=== PATIENT | female | born 1960 | race African-American/Black ===

== ENCOUNTER 2018-02-12 03:16 | Emergency (ER) | payer MEDICARE, MEDICAID ==
[~2018-02-12] VITALS: Ht 152.4 cm; Wt 62.0 kg
[~2018-02-12 03:16] MED LIST: ALBU18HF2; ALBU25PO2 MC; FLONAS NS; FLUT1DIS3 IH
[2018-02-12 07:10] VITALS: BP 145/70
[2018-02-12] MEDS ORDERED: BACITRACIN ZINC OINT UDPKT TOP ONE (07:15)
== END 2018-02-12 07:10 | disposition home or self-care (01) ==
LOC: ER 03:16
DX: S61.411D Laceration without foreign body of right hand, subsequent encounter (principal); L03.113 Cellulitis of right upper limb; M54.30 Sciatica, unspecified side; J45.909 Unspecified asthma, uncomplicated; F12.10 Cannabis abuse, uncomplicated; Z88.0 Allergy status to penicillin; Z88.2 Allergy status to sulfonamides; Z87.828 Personal history of other (healed) physical injury and trauma; X58.XXXD Exposure to other specified factors, subsequent encounter
CPT/HCPCS: 99283

== ENCOUNTER 2018-02-23 16:08 | Emergency (ER) | payer MEDICARE, MEDICAID ==
[~2018-02-23] VITALS: Ht 152.4 cm; Wt 62.0 kg
[2018-02-23 23:00] VITALS: BP 146/82
== END 2018-02-24 00:34 | disposition home or self-care (01) ==
LOC: ER 16:08
DX: B36.9 Superficial mycosis, unspecified (principal); J45.909 Unspecified asthma, uncomplicated; M54.30 Sciatica, unspecified side; Z88.0 Allergy status to penicillin; Z88.2 Allergy status to sulfonamides
CPT/HCPCS: 87070; 87077; 87205; 99284

== ENCOUNTER 2019-06-02 10:36 | Emergency (ER) | payer MEDICARE, MEDICAID ==
[~2019-06-02] VITALS: Ht 152.4 cm; Wt 61.0 kg
[2019-06-02] MEDS ORDERED: IBUPROFEN 600MG TABLET PO ONE (11:45)
[2019-06-02 12:10] VITALS: BP 130/81
== END 2019-06-02 12:20 | disposition home or self-care (01) ==
LOC: ER 10:36
DX: S40.261A Insect bite (nonvenomous) of right shoulder, initial encounter (principal); J45.909 Unspecified asthma, uncomplicated; Z88.0 Allergy status to penicillin; Z88.2 Allergy status to sulfonamides; Z86.73 Personal history of transient ischemic attack (TIA), and cerebral infarction without residual deficits; W57.XXXA Bitten or stung by nonvenomous insect and other nonvenomous arthropods, initial encounter; Y93.89 Activity, other specified; Y92.89 Other specified places as the place of occurrence of the external cause; Y99.8 Other external cause status
CPT/HCPCS: 99282

== ENCOUNTER 2019-06-20 10:43 | Emergency (ER) | payer MEDICARE, MEDICAID ==
[~2019-06-20] VITALS: Ht 162.6 cm; Wt 63.0 kg
[2019-06-20] MEDS ORDERED: COLCHICINE 0.6MG TABLET PO ONE (15:30)
[2019-06-20] MEDS ORDERED: IBUPROFEN 800MG TABLET PO ONE (15:30)
[2019-06-20] MEDS ORDERED: DEXAMETHASONE 4MG/ML 1ML VIAL PO ONE (15:30)
[2019-06-20 16:11] VITALS: BP 126/61
== END 2019-06-20 16:16 | disposition home or self-care (01) ==
LOC: ER 10:43
DX: M79.601 Pain in right arm (principal); R53.1 Weakness; M24.541 Contracture, right hand; J45.909 Unspecified asthma, uncomplicated; Z88.0 Allergy status to penicillin; Z79.899 Other long term (current) drug therapy; Z88.2 Allergy status to sulfonamides; Z86.73 Personal history of transient ischemic attack (TIA), and cerebral infarction without residual deficits
CPT/HCPCS: 99284; J1100

== ENCOUNTER 2020-05-11 11:40 | Emergency (ER) | payer MEDICARE, MEDICAID ==
[~2020-05-11] VITALS: Ht 162.6 cm; Wt 61.0 kg
[2020-05-11] MEDS ORDERED: ONDANSETRON 4MG ODT PO ONE (13:00)
[2020-05-11] MEDS ORDERED: KETOROLAC 60MG/2ML VIAL IM ONE (13:00)
[2020-05-11] MEDS ORDERED: KETOROLAC 30MG/ML VIAL IM ONE (13:00)
[2020-05-11] MEDS ORDERED: HYDROCODONE/ACETAMINOPHEN 5/325MG TABLET PO ONE ×2 (13:00)
[2020-05-11 14:18] VITALS: BP 150/66
== END 2020-05-11 14:46 | disposition home or self-care (01) ==
LOC: ER 11:40
DX: M54.31 Sciatica, right side (principal); M79.604 Pain in right leg; M54.5 Low back pain; J45.909 Unspecified asthma, uncomplicated; Z88.0 Allergy status to penicillin; Z88.2 Allergy status to sulfonamides; Z86.73 Personal history of transient ischemic attack (TIA), and cerebral infarction without residual deficits
CPT/HCPCS: 93005; 96372; 99283; J1885; Q0162

== ENCOUNTER 2021-12-31 17:56 | Emergency (ER) | payer MEDICARE, MEDICAID ==
[~2021-12-31] VITALS: Ht 152.4 cm; Wt 61.0 kg
[~2021-12-31 17:56] MED LIST changes: -ALBU25PO2 MC; +ALLO100T MT; +GABA-290 MT; +HYDR-4009 MT; +METH-653 GT; +PANT20TA17 MT
[2021-12-31] MEDS ORDERED: DICYCLOMINE 10 MG/5 ML ORAL SYR PO STA ×2 (19:15→20:59)
[2021-12-31] MEDS ORDERED: LORAZEPAM 0.5MG TABLET PO ONE ×2 (19:15→21:00)
[2021-12-31] MEDS ORDERED: MORPHINE SULFATE 4 MG/ML CPJ (NOT FOR IM USE) IV STA ×2 (19:15→20:59)
[2021-12-31 20:30] LABS: BASOPHILS % 1.3 % (0.0-2.0); EOSINOPHILS % 2.1 % (0.0-5.0); HEMATOCRIT. 31.1 % (36.0-48.0); HEMOGLOBIN. 10.5 g/dL (12.0-16.0); LYMPHOCYTES % 49.6 % (20.0-50.0); MEAN CORPUSCULAR HEMOGLOBIN 31.4 pg (28.0-32.0); MEAN CORPUSCULAR VOLUME 93.3 fL (81.0-99.0); MONOCYTES % 6.2 % (2.0-8.0); NEUTROPHILS % 40.8 % (40.0-76.0); PLATELET 288 x1000/uL (130-400); RED BLOOD CELL COUNT 3.33 mill/uL (4.2-5.4); RED CELL DISTRIBUTION WIDTH 13.4 % (11.6-14.6)
[2021-12-31 20:38] LABS: CHLORIDE 103 mEq/L (98-107)
[2021-12-31] MEDS ORDERED: DIPHENHYDRAMINE 25MG CAPSULE PO ONE (21:30)
[2021-12-31] MEDS ORDERED: DIPHENHYDRAMINE 50MG/ML VIAL IV ONE (21:45)
[2021-12-31 22:30] VITALS: BP 144/60
== END 2021-12-31 22:30 | disposition home or self-care (01) ==
LOC: ER 17:56
DX: M54.50 Low back pain, unspecified (principal); E87.6 Hypokalemia; I10 Essential (primary) hypertension; I69.351 Hemiplegia and hemiparesis following cerebral infarction affecting right dominant side; Z88.2 Allergy status to sulfonamides; Z88.0 Allergy status to penicillin
CPT/HCPCS: 36415; 80053; 83690; 85025; 96374; 96375; 99284; J1200; J2270; Q0163

== ENCOUNTER 2022-01-30 09:16 | Emergency (ER) | payer MEDICARE, MEDICAID ==
[~2022-01-30] VITALS: Ht 160 cm; Wt 59.0 kg
[2022-01-30 09:18] VITALS: BP 150/80
[2022-01-30] MEDS ORDERED: ONDANSETRON HCL 4MG/2ML INJ IV STA (09:38)
[2022-01-30] MEDS ORDERED: MAGNESIUM/ALUMINUM HYDROXIDE/SIMETHICONE 30ML UDC PO STA (09:38)
[2022-01-30] MEDS ORDERED: SODIUM CHLORIDE 0.9% 1,000 ML IV ONE (09:45)
[2022-01-30 10:21] LABS: EOSINOPHILS % 1.9 % (0.0-5.0); HEMATOCRIT. 37.8 % (36.0-48.0); HEMOGLOBIN. 12.4 g/dL (12.0-16.0); LYMPHOCYTES % 21.1 % (20.0-50.0); MEAN CORPUSCULAR HEMOGLOBIN 30.5 pg (28.0-32.0); MEAN CORPUSCULAR VOLUME 92.4 fL (81.0-99.0); MONOCYTES % 5.5 % (2.0-8.0); NEUTROPHILS % 70.5 % (40.0-76.0); PLATELET 244 x1000/uL (130-400); RED BLOOD CELL COUNT 4.09 mill/uL (4.2-5.4); RED CELL DISTRIBUTION WIDTH 13.6 % (11.6-14.6)
[2022-01-30 10:30] LABS: CHLORIDE 102 mEq/L (98-107)
[2022-01-30] MEDS ORDERED: POTASSIUM CHLORIDE 20MEQ TABLET SR PO NR (11:00)
[2022-01-30] MEDS ORDERED: HYDROCODONE/ACETAMINOPHEN 5/325MG TABLET PO ONE (12:00)
[2022-01-30 12:48] LABS: CLARITY URINE CLEAR (CLEAR); COLOR URINE YELLOW (YELLOW); KETONES URINE NEGATIVE (NEGATIVE); LEUKOCYTE ESTERASE URINE NEGATIVE (NEGATIVE); NITRITE URINE NEGATIVE (NEGATIVE); OCCULT BLOOD URINE NEGATIVE (NEGATIVE); PH URINE 6.5 (4.5-8.0); PROTEIN URINE NEGATIVE (NEGATIVE); UROBILINOGEN URINE 0.2 E.U./dL (0.2-1.0)
[2022-01-30] MEDS ORDERED: VISCOUS LIDOCAINE 2% 15 ML UDC PO NR (12:59)
[2022-01-30] MEDS ORDERED: ACETAMINOPHEN 325MG TABLET PO NR (13:00)
[2022-01-30] MEDS ORDERED: MAGN296S70 MT (13:05)
== END 2022-01-30 19:58 | disposition home or self-care (01) ==
LOC: ER 09:31
DX: K59.00 Constipation, unspecified (principal); J45.909 Unspecified asthma, uncomplicated; Z88.0 Allergy status to penicillin; Z88.2 Allergy status to sulfonamides; Z98.890 Other specified postprocedural states; Z86.73 Personal history of transient ischemic attack (TIA), and cerebral infarction without residual deficits
CPT/HCPCS: 36415; 74176; 80053; 81003; 83690; 85025; 93005; 96361; 96374; 99285; J2405; J7030

== ENCOUNTER 2022-02-06 10:58 | Emergency (ER) | payer MEDICARE, MEDICAID ==
[~2022-02-06] VITALS: Ht 167.6 cm; Wt 60.0 kg
[~2022-02-06 10:58] MED LIST changes: +MAGN296S70 MT
[2022-02-06] MEDS ORDERED: ONDANSETRON HCL 4MG/2ML INJ IV STA (11:16)
[2022-02-06] MEDS ORDERED: MORPHINE SULFATE 4 MG/ML CPJ (NOT FOR IM USE) IV STA (11:16)
[2022-02-06] MEDS ORDERED: SODIUM CHLORIDE 0.9% 1,000 ML IV ONE (11:30)
[2022-02-06 11:53] VITALS: BP 144/75
[2022-02-06 12:01] LABS: BASOPHILS % 1.3 % (0.0-2.0); EOSINOPHILS % 1.1 % (0.0-5.0); HEMATOCRIT. 36.2 % (36.0-48.0); HEMOGLOBIN. 12.1 g/dL (12.0-16.0); MEAN CORPUSCULAR HEMOGLOBIN 30.9 pg (28.0-32.0); MEAN CORPUSCULAR VOLUME 92.7 fL (81.0-99.0); MEAN PLATELET VOLUME 9.4 fl (7.4-10.4); MONOCYTES % 5.6 % (2.0-8.0); PLATELET 275 x1000/uL (130-400); RED CELL DISTRIBUTION WIDTH 13.6 % (11.6-14.6)
[2022-02-06 12:09] LABS: CHLORIDE 104 mEq/L (98-107)
[2022-02-06 12:13] LABS: CLARITY URINE CLEAR (CLEAR); COLOR URINE YELLOW (YELLOW); KETONES URINE NEGATIVE (NEGATIVE); LEUKOCYTE ESTERASE URINE 2+ (NEGATIVE); NITRITE URINE NEGATIVE (NEGATIVE); OCCULT BLOOD URINE NEGATIVE (NEGATIVE); PROTEIN URINE NEGATIVE (NEGATIVE); SPECIFIC GRAVITY URINE 1.015 (1.005-1.030); UROBILINOGEN URINE 0.2 E.U./dL (0.2-1.0)
[2022-02-06] MEDS ORDERED: CIPR-263 MT (13:06)
[2022-02-06] MEDS ORDERED: ACETAMINOPHEN 325MG TABLET PO ONE (14:45)
[2022-02-06] MEDS ORDERED: ACET-2708 MT (15:21)
[2022-02-06] MEDS ORDERED: MAGNESIUM/ALUMINUM HYDROXIDE/SIMETHICONE 30ML UDC PO ONE (15:30)
[2022-02-06] MEDS ORDERED: MAG355OR21 MT (15:41)
[2022-02-14] MEDS ORDERED: HYDR-4001 MT (18:31)
== END 2022-02-06 15:36 | disposition home or self-care (01) ==
LOC: ER 10:58
DX: N39.0 Urinary tract infection, site not specified (principal); J45.909 Unspecified asthma, uncomplicated; Z88.0 Allergy status to penicillin; Z88.2 Allergy status to sulfonamides; Z79.899 Other long term (current) drug therapy; Z86.73 Personal history of transient ischemic attack (TIA), and cerebral infarction without residual deficits; Z98.890 Other specified postprocedural states
CPT/HCPCS: 36415; 71045; 80053; 81003; 83690; 85025; 96361; 96374; 96375; 99284; J2270; J2405; J7030

== ENCOUNTER 2022-02-14 16:26 | Emergency (ER) | payer MEDICARE, MEDICAID ==
[~2022-02-14] VITALS: Ht 165.1 cm; Wt 59.0 kg
[~2022-02-14 16:26] MED LIST changes: +ACET-2708 MT; +CIPR-263 MT; +MAG355OR21 MT
[2022-02-14 17:43] LABS: BASOPHILS % 0.9 % (0.0-2.0); EOSINOPHILS % 1.1 % (0.0-5.0); HEMATOCRIT. 32.3 % (36.0-48.0); HEMOGLOBIN. 10.8 g/dL (12.0-16.0); LYMPHOCYTES % 22.1 % (20.0-50.0); MEAN CORPUSCULAR HEMOGLOBIN 31.2 pg (28.0-32.0); MEAN CORPUSCULAR VOLUME 93.5 fL (81.0-99.0); MEAN PLATELET VOLUME 9.3 fl (7.4-10.4); MONOCYTES % 9.9 % (2.0-8.0); PLATELET 243 x1000/uL (130-400); RED BLOOD CELL COUNT 3.45 mill/uL (4.2-5.4); RED CELL DISTRIBUTION WIDTH 13.2 % (11.6-14.6)
[2022-02-14 17:51] LABS: CHLORIDE 98 mEq/L (98-107)
[2022-02-14] MEDS ORDERED: COLCHICINE 0.6MG TABLET PO ONE (18:15)
[2022-02-14] MEDS ORDERED: HYDR-4001 MT ×2 (18:31)
[2022-02-14] MEDS ORDERED: IBUP-2029 MT (18:31)
[2022-02-14] MEDS ORDERED: COLC0.6C3 MT (18:31)
[2022-02-14] MEDS ORDERED: HYDROCODONE/ACETAMINOPHEN 5/325MG TABLET PO ONE (19:00)
[2022-02-14 19:34] VITALS: BP 140/74
[2022-02-15] MEDS ORDERED: HYDR-4001 MT (19:03)
[2022-02-15] MEDS ORDERED: MAG355OR21 MT (19:03)
== END 2022-02-14 21:05 | disposition home or self-care (01) ==
LOC: ER 16:26
DX: M10.9 Gout, unspecified (principal); E87.6 Hypokalemia; D64.9 Anemia, unspecified; M19.90 Unspecified osteoarthritis, unspecified site; I69.351 Hemiplegia and hemiparesis following cerebral infarction affecting right dominant side; F17.210 Nicotine dependence, cigarettes, uncomplicated; F11.10 Opioid abuse, uncomplicated; I10 Essential (primary) hypertension; K21.9 Gastro-esophageal reflux disease without esophagitis; Z98.890 Other specified postprocedural states; Z88.2 Allergy status to sulfonamides; Z88.0 Allergy status to penicillin
CPT/HCPCS: 36415; 73080; 80053; 84550; 85025; 99284

== ENCOUNTER 2022-02-18 21:16 | Emergency (ER) | payer MEDICARE, MEDICAID ==
[~2022-02-18] VITALS: Ht 170.2 cm; Wt 74.0 kg
[~2022-02-18 21:16] MED LIST changes: +COLC0.6C3 MT; +HYDR-4001 MT; +IBUP-2029 MT
[2022-02-18] MEDS ORDERED: KETOROLAC 30MG/ML VIAL IV STA (21:28)
[2022-02-18 22:18] LABS: CLARITY URINE CLEAR (CLEAR); COLOR URINE YELLOW (YELLOW); KETONES URINE NEGATIVE (NEGATIVE); LEUKOCYTE ESTERASE URINE TRACE (NEGATIVE); NITRITE URINE NEGATIVE (NEGATIVE); OCCULT BLOOD URINE NEGATIVE (NEGATIVE); PROTEIN URINE NEGATIVE (NEGATIVE); SPECIFIC GRAVITY URINE 1.006 (1.005-1.030); UROBILINOGEN URINE 0.2 E.U./dL (0.2-1.0)
[2022-02-18 22:19] LABS: HEMATOCRIT. 31.9 % (36.0-48.0); HEMOGLOBIN. 10.5 g/dL (12.0-16.0); MEAN CORPUSCULAR HEMOGLOBIN 30.4 pg (28.0-32.0); MEAN CORPUSCULAR VOLUME 92.5 fL (81.0-99.0); MEAN PLATELET VOLUME 9.4 fl (7.4-10.4); PLATELET 348 x1000/uL (130-400); RED BLOOD CELL COUNT 3.45 mill/uL (4.2-5.4); RED CELL DISTRIBUTION WIDTH 13.3 % (11.6-14.6)
[2022-02-18 22:24] LABS: CHLORIDE 100 mEq/L (98-107)
[2022-02-18 22:37] LABS: CREATINE KINASE 198 IU/L (26-192)
[2022-02-18] MEDS ORDERED: CEFTRIAXONE 1 G PREMIX 50 ML IV ONE (22:45)
[2022-02-18 22:54] LABS: PLATELET ESTIMATE NORMAL
[2022-02-19] MEDS ORDERED: CIPR500T5 MT (00:37)
[2022-02-19 01:27] VITALS: BP 145/68
[2022-02-21] MEDS ORDERED: COLC0.6C PO (01:49)
[2022-02-21] MEDS ORDERED: OMEP40CA20 PO (01:49)
== END 2022-02-19 01:29 | disposition home or self-care (01) ==
LOC: ER 21:16
DX: N39.0 Urinary tract infection, site not specified (principal); G89.29 Other chronic pain; M54.9 Dorsalgia, unspecified; R10.9 Unspecified abdominal pain; K21.9 Gastro-esophageal reflux disease without esophagitis; J45.909 Unspecified asthma, uncomplicated; M10.9 Gout, unspecified; Z86.73 Personal history of transient ischemic attack (TIA), and cerebral infarction without residual deficits; Z88.2 Allergy status to sulfonamides; Z88.6 Allergy status to analgesic agent
CPT/HCPCS: 36415; 71045; 80053; 81003; 82550; 83605; 83615; 84145; 84484; 85025; 86140; 87040; 93005; 96365; 96375; 99285; J0696; J1885

== ENCOUNTER 2022-03-29 21:05 | Emergency (ER) | payer MEDICARE, MEDICAID ==
[~2022-03-29] VITALS: Ht 162.6 cm; Wt 61.0 kg
[~2022-03-29 21:05] MED LIST changes: +CIPR500T5 MT; -HYDR-4009 MT; -PANT20TA17 MT
[2022-03-29] MEDS ORDERED: METHOCARBAMOL 500MG TABLET PO ONE (22:15)
[2022-03-29] MEDS ORDERED: KETOROLAC 30MG/ML VIAL IM ONE (22:15)
[2022-03-29 22:47] LABS: CLARITY URINE CLEAR (CLEAR); COLOR URINE YELLOW (YELLOW); KETONES URINE NEGATIVE (NEGATIVE); LEUKOCYTE ESTERASE URINE NEGATIVE (NEGATIVE); NITRITE URINE NEGATIVE (NEGATIVE); OCCULT BLOOD URINE NEGATIVE (NEGATIVE); PROTEIN URINE NEGATIVE (NEGATIVE); SPECIFIC GRAVITY URINE 1.008 (1.005-1.030); UROBILINOGEN URINE 0.2 E.U./dL (0.2-1.0)
[2022-03-29 22:49] LABS: BASOPHILS % 1.3 % (0.0-2.0); EOSINOPHILS % 2.2 % (0.0-5.0); HEMATOCRIT. 32.2 % (36.0-48.0); HEMOGLOBIN. 10.8 g/dL (12.0-16.0); LYMPHOCYTES % 47.6 % (20.0-50.0); MEAN CORPUSCULAR HEMOGLOBIN 31.6 pg (28.0-32.0); MEAN CORPUSCULAR VOLUME 94.4 fL (81.0-99.0); MEAN PLATELET VOLUME 8.9 fl (7.4-10.4); MONOCYTES % 6.1 % (2.0-8.0); NEUTROPHILS % 42.8 % (40.0-76.0); PLATELET 257 x1000/uL (130-400); RED BLOOD CELL COUNT 3.41 mill/uL (4.2-5.4); RED CELL DISTRIBUTION WIDTH 13.9 % (11.6-14.6)
[2022-03-29 23:03] LABS: CHLORIDE 101 mEq/L (98-107)
[2022-03-30] MEDS ORDERED: HYDROCODONE/ACETAMINOPHEN 5/325MG TABLET PO ONE (00:15)
[2022-03-30 00:59] VITALS: BP 126/74
== END 2022-03-30 00:59 | disposition home or self-care (01) ==
LOC: ER 21:05
DX: M54.50 Low back pain, unspecified (principal); G89.29 Other chronic pain; M54.30 Sciatica, unspecified side; K21.9 Gastro-esophageal reflux disease without esophagitis; J45.909 Unspecified asthma, uncomplicated; Z86.73 Personal history of transient ischemic attack (TIA), and cerebral infarction without residual deficits; Z88.2 Allergy status to sulfonamides; Z88.0 Allergy status to penicillin
CPT/HCPCS: 36415; 80048; 81003; 85025; 96372; 99283; J1885

== ENCOUNTER 2022-05-27 14:31 | Emergency (ER) | payer MEDICARE, MEDICAID ==
[~2022-05-27] VITALS: Ht 170.2 cm; Wt 75.0 kg
[~2022-05-27 14:31] MED LIST changes: -CIPR-263 MT; -CIPR500T5 MT; -COLC0.6C3 MT; -FLONAS NS; -FLUT1DIS3 IH; -IBUP-2029 MT; -METH-653 GT; +METO-539 PO; +PANT40TA51 MT
[2022-05-27] MEDS ORDERED: DICYCLOMINE 10 MG/5 ML ORAL SYR PO STA (15:47)
[2022-05-27] MEDS ORDERED: KETOROLAC 60MG/2ML VIAL IM STA (15:47)
[2022-05-27 16:23] VITALS: BP 135/72
[2022-05-27 16:49] LABS: BASOPHILS % 1.2 % (0.0-2.0); EOSINOPHILS % 1.2 % (0.0-5.0); HEMATOCRIT. 37.5 % (36.0-48.0); HEMOGLOBIN. 11.9 g/dL (12.0-16.0); LYMPHOCYTES % 26.8 % (20.0-50.0); MEAN CORPUSCULAR HEMOGLOBIN 30.9 pg (28.0-32.0); MEAN CORPUSCULAR VOLUME 97.2 fL (81.0-99.0); MEAN PLATELET VOLUME 10.2 fl (7.4-10.4); MONOCYTES % 4.6 % (2.0-8.0); NEUTROPHILS % 66.2 % (40.0-76.0); PLATELET 237 x1000/uL (130-400); RED BLOOD CELL COUNT 3.86 mill/uL (4.2-5.4)
[2022-05-27 16:53] LABS: CHLORIDE 104 mEq/L (98-107)
[2022-05-27 16:55] LABS: PROTHROMBIN TIME 10.4 sec (9.6-11.0)
[2022-05-27] MEDS: MORPHINE SULFATE 10 MG/ML CPJ IV ONE ×2 (17:44→17:48)
[2022-05-27] MEDS ORDERED: DIPHENHYDRAMINE 50MG/ML VIAL IV ONE (18:15)
[2022-05-27] MEDS ORDERED: DICY10CA88 MT (19:02)
[2022-05-27] MEDS ORDERED: FAMO-135 MT (19:02)
== END 2022-05-27 19:14 | disposition home or self-care (01) ==
LOC: ER 14:31
DX: R10.84 Generalized abdominal pain (principal); G89.29 Other chronic pain; K21.9 Gastro-esophageal reflux disease without esophagitis; I10 Essential (primary) hypertension; I69.351 Hemiplegia and hemiparesis following cerebral infarction affecting right dominant side; J45.909 Unspecified asthma, uncomplicated; Z88.2 Allergy status to sulfonamides; Z88.5 Allergy status to narcotic agent; Z88.0 Allergy status to penicillin
CPT/HCPCS: 36415; 80053; 83690; 85025; 85610; 96372; 96374; 96375; 99284; J1200; J1885; J2270

== ENCOUNTER 2022-05-31 16:36 | Emergency (ER) | payer MEDICARE, MEDICAID ==
[~2022-05-31] VITALS: Ht 170.2 cm; Wt 61.0 kg
[~2022-05-31 16:36] MED LIST changes: +DICY10CA88 MT; +FAMO-135 MT
[2022-05-31 16:39] VITALS: BP 126/69
[2022-05-31] MEDS ORDERED: KETOROLAC 60MG/2ML VIAL IM NR (17:00)
[2022-05-31] MEDS ORDERED: KETOROLAC 60MG/2ML VIAL IM ONE (17:00)
[2022-05-31] MEDS ORDERED: IBUP-2029 MT (19:07)
[2022-05-31] MEDS ORDERED: CYCL10TA21 MT (19:07)
[2022-05-31] MEDS ORDERED: ACETAMINOPHEN 325MG TABLET PO ONE (19:15)
== END 2022-05-31 19:27 | disposition home or self-care (01) ==
LOC: ER 16:36
DX: S30.0XXA Contusion of lower back and pelvis, initial encounter (principal); W18.39XA Other fall on same level, initial encounter; Y93.89 Activity, other specified; Y92.89 Other specified places as the place of occurrence of the external cause; Y99.8 Other external cause status; K21.9 Gastro-esophageal reflux disease without esophagitis; J45.909 Unspecified asthma, uncomplicated; Z86.73 Personal history of transient ischemic attack (TIA), and cerebral infarction without residual deficits; Z87.440 Personal history of urinary (tract) infections
CPT/HCPCS: 72131; 96372; 99284; J1885

== ENCOUNTER 2022-09-29 07:16 | Emergency (ER) | payer OTHER, MEDICAID ==
[~2022-09-29] VITALS: Ht 165.1 cm; Wt 60.0 kg
[~2022-09-29 07:16] MED LIST changes: +CYCL10TA21 MT; +IBUP-2029 MT
[2022-09-29] MEDS ORDERED: HYDROCODONE/ACETAMINOPHEN 7.5/325MG TABLET PO PRN (08:15)
[2022-09-29 08:58] LABS: BASOPHILS % 2.2 % (0.0-2.0); EOSINOPHILS % 2.8 % (0.0-5.0); HEMATOCRIT. 34.4 % (36.0-48.0); HEMOGLOBIN. 11.3 g/dL (12.0-16.0); MEAN CORPUSCULAR HEMOGLOBIN 30.2 pg (28.0-32.0); MEAN CORPUSCULAR VOLUME 91.4 fL (81.0-99.0); MEAN PLATELET VOLUME 9.4 fl (7.4-10.4); MONOCYTES % 5.2 % (2.0-8.0); NEUTROPHILS % 32.8 % (40.0-76.0); PLATELET 222 x1000/uL (130-400); RED BLOOD CELL COUNT 3.76 mill/uL (4.2-5.4); RED CELL DISTRIBUTION WIDTH 14.6 % (11.6-14.6)
[2022-09-29] MEDS ORDERED: TRAMADOL 50MG TABLET PO ONE (09:45)
[2022-09-29 09:50] LABS: CHLORIDE 103 mEq/L (98-107)
[2022-09-29 10:08] VITALS: BP 139/82
== END 2022-09-29 12:45 | disposition home or self-care (01) ==
LOC: ER 07:16
DX: K58.9 Irritable bowel syndrome, unspecified (principal); J45.909 Unspecified asthma, uncomplicated; Z88.0 Allergy status to penicillin; Z88.2 Allergy status to sulfonamides; Z79.899 Other long term (current) drug therapy; Z98.890 Other specified postprocedural states; Z86.73 Personal history of transient ischemic attack (TIA), and cerebral infarction without residual deficits
CPT/HCPCS: 36415; 80048; 84484; 85025; 93005; 99284

== ENCOUNTER 2022-12-06 15:43 | Inpatient (IN) | payer MEDICARE, MEDICAID ==
[~2022-12-06] VITALS: Ht 167.6 cm; Wt 69.9 kg
[2022-12-06] MEDS ORDERED: ONDANSETRON HCL 4MG/2ML INJ IV STA (16:07)
[2022-12-06] MEDS ORDERED: KETOROLAC 30MG/ML VIAL IV STA (16:07)
[2022-12-06] MEDS ORDERED: FAMOTIDINE 20MG/2ML VIAL IV STA (16:07)
[2022-12-06] MEDS ORDERED: SODIUM CHLORIDE 0.9% 1,000 ML IV ONE (16:15)
[2022-12-06 16:43] LABS: BASOPHILS % 1.2 % (0.0-2.0); HEMATOCRIT. 33.3 % (36.0-48.0); LYMPHOCYTES % 49.4 % (20.0-50.0); NEUTROPHILS % 40.4 % (40.0-76.0); PLATELET 264 x1000/uL (130-400); RED BLOOD CELL COUNT 3.54 mill/uL (4.2-5.4); RED CELL DISTRIBUTION WIDTH 14.7 % (11.6-14.6)
[2022-12-06 16:47] LABS: CHLORIDE 103 mEq/L (98-107)
[2022-12-06] MEDS ORDERED: POTASSIUM CHLORIDE 20MEQ TABLET SR PO NR (17:15)
[2022-12-06] MEDS ORDERED: KCL 10MEQ/50ML PREMIX 50 ML IV NR (17:45)
[2022-12-06] MEDS ORDERED: FAMOTIDINE 20MG/2ML VIAL IV NR (21:30)
[2022-12-06] MEDS ORDERED: KETOROLAC 15MG/ML VIAL IV NR (21:30)
[2022-12-06] MEDS ORDERED: ONDANSETRON HCL 4MG/2ML INJ IV NR (21:30)
[2022-12-07] MEDS ORDERED: CLONIDINE 0.1MG TABLET PO PRN (00:30)
[2022-12-07] MEDS ORDERED: KETOROLAC 15MG/ML VIAL IV NR (00:30)
[2022-12-07] MEDS ORDERED: HYDROCODONE/ACETAMINOPHEN 5/325MG TABLET PO PRN (00:30)
[2022-12-07] MEDS ORDERED: ACETAMINOPHEN 325MG TABLET PO PRN ×2 (00:30)
[2022-12-07] MEDS ORDERED: ONDANSETRON HCL 4MG/2ML INJ IV PRN (00:30)
[2022-12-07] MEDS ORDERED: IPRATROPIUM/ALBUTEROL 0.5-3(2.5)MG/3ML NEB HHN PRN (00:30)
[2022-12-07 00:35] LABS: CLARITY URINE CLEAR (CLEAR); COLOR URINE YELLOW (YELLOW); KETONES URINE NEGATIVE (NEGATIVE); LEUKOCYTE ESTERASE URINE TRACE (NEGATIVE); NITRITE URINE NEGATIVE (NEGATIVE); OCCULT BLOOD URINE NEGATIVE (NEGATIVE); PH URINE 5.5 (4.5-8.0); PROTEIN URINE NEGATIVE (NEGATIVE); SPECIFIC GRAVITY URINE 1.013 (1.005-1.030); UROBILINOGEN URINE 0.2 E.U./dL (0.2-1.0)
[2022-12-07] MEDS ORDERED: NALOXONE HCL 0.4MG/ML VIAL IV PRN (00:45)
[2022-12-07] MEDS ORDERED: IOHEXOL-300 100 ML BOTTLE ONE (01:05)
[2022-12-07] MEDS: DEXT 5%/0.9% NACL 1,000 ML IV SCH ×3 (01:15→21:20)
[2022-12-07] MEDS: PANTOPRAZOLE SODIUM 40 MG/VIAL IV SCH ×2 (01:15→09:00)
[2022-12-07 01:36] LABS: BASOPHILS % 1.2 % (0.0-2.0); EOSINOPHILS % 2.2 % (0.0-5.0); HEMATOCRIT. 31.3 % (36.0-48.0); HEMOGLOBIN. 10.5 g/dL (12.0-16.0); LYMPHOCYTES % 40.9 % (20.0-50.0); MEAN CORPUSCULAR HEMOGLOBIN 31.6 pg (28.0-32.0); MEAN CORPUSCULAR VOLUME 93.8 fL (81.0-99.0); MEAN PLATELET VOLUME 8.9 fl (7.4-10.4); MONOCYTES % 7.4 % (2.0-8.0); NEUTROPHILS % 48.3 % (40.0-76.0); PLATELET 243 x1000/uL (130-400); RED BLOOD CELL COUNT 3.33 mill/uL (4.2-5.4); RED CELL DISTRIBUTION WIDTH 14.2 % (11.6-14.6)
[2022-12-07 01:41] LABS: CHLORIDE 108 mEq/L (98-107)
[2022-12-07 01:56] LABS: HDL CHOLESTEROL 102 mg/dL (40-59); LDL CHOLESTEROL 49 mg/dL (5-100); PHOSPHORUS 3.5 mg/dL (2.5-4.9); T4 FREE 1.15 ng/dL (0.76-1.46); TOTAL IRON BINDING CAPACITY 322 ug/dL (250-450)
[2022-12-07 02:13] LABS: FOLIC ACID (FOLATE) SERUM 8.1 ng/mL (>5.38)
[2022-12-07] MEDS: HYDROCODONE/ACETAMINOPHEN 10/325MG TABLET PO PRN ×2 (02:39→13:10)
[2022-12-07] MEDS: ENOXAPARIN 40MG/0.4ML SYR SUBCUT SCH (09:00)
[2022-12-07] MEDS: ALLOPURINOL 100 MG TABLET PO SCH ×2 (09:00→13:31)
[2022-12-07] MEDS: METOPROLOL TARTRATE 50MG TABLET PO SCH ×2 (09:00→14:34)
[2022-12-07 10:45] LABS: CHLORIDE 110 mEq/L (98-107)
[2022-12-07 13:40] VITALS: BP 160/73
[2022-12-07 14:00] VITALS: BP 160/73
[2022-12-07 16:00] VITALS: BP 154/86
[2022-12-07] MEDS ORDERED: LOPERAMIDE HCL 2MG CAPSULE PO SCH (17:15)
[2022-12-07] MEDS: MORPHINE SULFATE 2 MG/ML CPJ (NOT FOR IM USE) IV PRN ×2 (17:48→22:21)
[2022-12-07 19:56] VITALS: BP 107/53
[2022-12-08 00:07] VITALS: BP 124/58
[2022-12-08] MEDS: MORPHINE SULFATE 2 MG/ML CPJ (NOT FOR IM USE) IV PRN ×2 (02:51→07:09)
[2022-12-08 04:00] VITALS: BP 106/41
[2022-12-08] MEDS: DEXT 5%/0.9% NACL 1,000 ML IV SCH (06:13)
[2022-12-08 08:00] VITALS: BP 142/68
[2022-12-08] MEDS: PANTOPRAZOLE SODIUM 40 MG/VIAL IV SCH (08:41)
[2022-12-08] MEDS: ENOXAPARIN 40MG/0.4ML SYR SUBCUT SCH (08:41)
[2022-12-08] MEDS: METOPROLOL TARTRATE 50MG TABLET PO SCH (08:42)
[2022-12-08 08:49] LABS: CHLORIDE 108 mEq/L (98-107)
[2022-12-08 10:03] VITALS: BP 142/68
== END 2022-12-08 11:22 | disposition home or self-care (01) | DRG 392 ==
LOC: ER 15:43 → MICUSO 21:41 → 4WST 12-07 13:36
PROVIDERS: ADMIT Internal Medicine; ATTEND Internal Medicine
DX: K58.0 Irritable bowel syndrome with diarrhea (principal); E87.6 Hypokalemia; I10 Essential (primary) hypertension; D63.8 Anemia in other chronic diseases classified elsewhere; J45.909 Unspecified asthma, uncomplicated; G89.29 Other chronic pain; K21.9 Gastro-esophageal reflux disease without esophagitis; Z76.5 Malingerer [conscious simulation]; Z86.73 Personal history of transient ischemic attack (TIA), and cerebral infarction without residual deficits; Z79.899 Other long term (current) drug therapy; Z88.5 Allergy status to narcotic agent; Z88.0 Allergy status to penicillin; Z88.2 Allergy status to sulfonamides; K27.9 Peptic ulcer, site unspecified, unspecified as acute or chronic, without hemorrhage or perforation
CPT/HCPCS: 36415; 74177; 80048; 80053; 80061; 81003; 82270; 82607; 82728; 82746; 83036; 83540; 83550; 83605; 83735; 84100; 84145; 84439; 84443; 85025; 87015; 87045; 87427; 87449; 87493; 89055; 93970; 99285; C9113; J1650; J1885; J2270; J2405; J3480; J3490; J7030; J7042; Q9967

== ENCOUNTER 2022-12-18 17:34 | Emergency (ER) | payer MEDICARE, MEDICAID ==
[~2022-12-18] VITALS: Ht 167.6 cm; Wt 68.0 kg
[~2022-12-18 17:34] MED LIST changes: -ALBU18HF2
[2022-12-18] MEDS ORDERED: ONDANSETRON HCL 4MG/2ML INJ IV STA (18:47)
[2022-12-18] MEDS ORDERED: MORPHINE SULFATE 4 MG/ML CPJ (NOT FOR IM USE) IV STA (18:47)
[2022-12-18 19:31] LABS: BASOPHILS % 1.1 % (0.0-2.0); EOSINOPHILS % 4.8 % (0.0-5.0); HEMATOCRIT. 30.6 % (36.0-48.0); HEMOGLOBIN. 10.2 g/dL (12.0-16.0); LYMPHOCYTES % 31.6 % (20.0-50.0); MEAN CORPUSCULAR HEMOGLOBIN 31.6 pg (28.0-32.0); MEAN CORPUSCULAR VOLUME 94.6 fL (81.0-99.0); MEAN PLATELET VOLUME 9.5 fl (7.4-10.4); MONOCYTES % 6.2 % (2.0-8.0); NEUTROPHILS % 56.3 % (40.0-76.0); PLATELET 227 x1000/uL (130-400); RED BLOOD CELL COUNT 3.23 mill/uL (4.2-5.4); RED CELL DISTRIBUTION WIDTH 14.5 % (11.6-14.6)
[2022-12-18 19:36] LABS: CHLORIDE 107 mEq/L (98-107)
[2022-12-18 19:39] LABS: PROTHROMBIN TIME 11.1 sec (9.6-11.0)
[2022-12-18] MEDS ORDERED: POTASSIUM CHLORIDE 20MEQ TABLET SR PO ONE (20:30)
[2022-12-18] MEDS ORDERED: ONDANSETRON HCL 4MG/2ML INJ IV NR (23:15)
[2022-12-18] MEDS ORDERED: MORPHINE SULFATE 4 MG/ML CPJ (NOT FOR IM USE) IV NR (23:15)
[2022-12-18] MEDS ORDERED: POTASSIUM CHLORIDE 20MEQ TABLET SR PO NR (23:15)
[2022-12-19] MEDS ORDERED: FAMOTIDINE 20MG/2ML VIAL IV ONE (00:45)
[2022-12-19 01:16] VITALS: BP 132/89
== END 2022-12-19 01:20 | disposition home or self-care (01) ==
LOC: ER 17:34
DX: R10.84 Generalized abdominal pain (principal); R11.2 Nausea with vomiting, unspecified; J45.909 Unspecified asthma, uncomplicated; K21.9 Gastro-esophageal reflux disease without esophagitis; I10 Essential (primary) hypertension; Z86.73 Personal history of transient ischemic attack (TIA), and cerebral infarction without residual deficits; Z79.899 Other long term (current) drug therapy
CPT/HCPCS: 36415; 80053; 83690; 85025; 85610; 96374; 96375; 99284; J2270; J2405; J3490

== ENCOUNTER 2023-02-21 15:20 | Emergency (ER) | payer MEDICARE, MEDICAID ==
[~2023-02-21] VITALS: Ht 157.5 cm; Wt 66.0 kg
[~2023-02-21 15:20] MED LIST changes: -ALLO100T MT; -CYCL10TA21 MT; -DICY10CA88 MT; -HYDR-4001 MT; +LACT10SO81 PO; -MAGN296S70 MT; -PANT40TA51 MT
[2023-02-21 15:30] VITALS: BP 150/82; PULSE 82; RESP 18; TEMP 98.3; O2SAT 100
[2023-02-21 16:59] LABS: BASOPHILS % 0.7 % (0.0-2.0); EOSINOPHILS % 0.7 % (0.0-5.0); HEMATOCRIT. 32.3 % (36.0-48.0); LYMPHOCYTES % 17.2 % (20.0-50.0); MEAN CORPUSCULAR HEMOGLOBIN 32.6 pg (28.0-32.0); MEAN CORPUSCULAR VOLUME 95.6 fL (81.0-99.0); MEAN PLATELET VOLUME 9.1 fl (7.4-10.4); MONOCYTES % 4.8 % (2.0-8.0); NEUTROPHILS % 76.6 % (40.0-76.0); PLATELET 243 x1000/uL (130-400); RED BLOOD CELL COUNT 3.38 mill/uL (4.2-5.4); RED CELL DISTRIBUTION WIDTH 14.4 % (11.6-14.6)
[2023-02-21 17:07] LABS: CHLORIDE 103 mEq/L (98-107); CLARITY URINE CLEAR (CLEAR); COLOR URINE YELLOW (YELLOW); KETONES URINE NEGATIVE (NEGATIVE); LEUKOCYTE ESTERASE URINE 1+ (NEGATIVE); NITRITE URINE NEGATIVE (NEGATIVE); OCCULT BLOOD URINE NEGATIVE (NEGATIVE); PH URINE 6.5 (4.5-8.0); PROTEIN URINE NEGATIVE (NEGATIVE); SPECIFIC GRAVITY URINE 1.008 (1.005-1.030); UROBILINOGEN URINE 0.2 E.U./dL (0.2-1.0)
[2023-02-21 17:15] LABS: INR 1.1; PROTHROMBIN TIME 11.4 sec (9.6-11.0)
[2023-02-22] MEDS ORDERED: HYDR-4009 PO (22:55)
== END 2023-02-21 17:35 | disposition left against medical advice (07) ==
LOC: ER 15:20
DX: Z53.21 Procedure and treatment not carried out due to patient leaving prior to being seen by health care provider (principal)
CPT/HCPCS: 36415; 80053; 81003; 85025; 99281

== ENCOUNTER 2023-04-01 09:23 | Emergency (ER) | payer MEDICARE, MEDICAID ==
[~2023-04-01] VITALS: Ht 167.6 cm; Wt 75.0 kg
[~2023-04-01 09:23] MED LIST changes: +HYDR-4009 PO
[2023-04-01 09:25] VITALS: O2SAT 99
[2023-04-01 10:26] LABS: BASOPHILS % 0.3 % (0.0-2.0); EOSINOPHILS % 2.7 % (0.0-5.0); HEMATOCRIT. 33.3 % (36.0-48.0); HEMOGLOBIN. 10.8 g/dL (12.0-16.0); LYMPHOCYTES % 38.8 % (20.0-50.0); MEAN CORPUSCULAR HEMOGLOBIN 30.6 pg (28.0-32.0); MEAN CORPUSCULAR HGB CONC 32.5 g/dL (31.0-37.0); MEAN CORPUSCULAR VOLUME 94.2 fL (81.0-99.0); MEAN PLATELET VOLUME 10.5 fl (7.4-10.4); MONOCYTES % 4.1 % (2.0-8.0); NEUTROPHILS % 54.1 % (40.0-76.0); PLATELET 226 x1000/uL (130-400); RED BLOOD CELL COUNT 3.54 mill/uL (4.2-5.4); WHITE BLOOD COUNT 4.9 x1000/uL (4.5-11.0)
[2023-04-01 10:36] LABS: CHLORIDE 106 mEq/L (98-107); INDEX HEMOLYSI 1 (1-3); INDEX ICTERIC 1 (1-4); INDEX LIPEMIC 1 (1-3); POTASSIUM 3.9 mEq/L (3.5-5.1); SODIUM 137 mEq/L (136-145)
[2023-04-01 10:46] LABS: ALANINE AMINOTRANSFERASE 22 IU/L (13-61); ALBUMIN 3.9 g/dL (3.4-5.0); ASPARTATE AMINOTRANSFERASE 14 IU/L (15-37); BILIRUBIN TOTAL 0.3 mg/dL (0.1-1.0); CALCIUM 9.1 mg/dL (8.5-10.1); CARBON DIOXIDE 26 mEq/L (21-32); CREATININE 0.6 mg/dL (0.6-1.3); GLUCOSE 108 mg/dL (70-105); NT PRO B-TYPE NATRIURETIC PEP 86 pg/mL (5-125); PROTEIN TOTAL 8.2 g/dL (6.0-8.3); UREA NITROGEN BLOOD 11 mg/dL (7-21)
[2023-04-01 10:47] LABS: TROPONIN I HIGH SENSITIVITY < 4 ng/L (<54)
[2023-04-01] MEDS ORDERED: TOPUD PO (13:59)
[2023-04-01] MEDS ORDERED: KETOROLAC 60MG/2ML VIAL IM ONE (14:00)
[2023-04-01 15:07] VITALS: BP 140/71; PULSE 70; RESP 16; TEMP 98.8
== END 2023-04-01 15:08 | disposition home or self-care (01) ==
LOC: ER 09:23 → CANBEDREQ 13:57 → ER 15:08
DX: M54.50 Low back pain, unspecified (principal); J45.909 Unspecified asthma, uncomplicated; I10 Essential (primary) hypertension; Z88.0 Allergy status to penicillin; Z88.2 Allergy status to sulfonamides; Z79.899 Other long term (current) drug therapy; Z98.890 Other specified postprocedural states; Z86.73 Personal history of transient ischemic attack (TIA), and cerebral infarction without residual deficits
CPT/HCPCS: 99285; 71045; 80053; 83880; 85025; 84484; 36415; 93005; 96372; J1885

== ENCOUNTER 2023-04-06 03:01 | Emergency (ER) | payer MEDICARE, MEDICAID ==
[~2023-04-06] VITALS: Ht 162.6 cm; Wt 73.0 kg
[~2023-04-06 03:01] MED LIST changes: +TOPUD PO
[2023-04-06 03:06] VITALS: O2SAT 99
[2023-04-06] MEDS ORDERED: CYCL10TA21 MT (05:52)
[2023-04-06] MEDS ORDERED: TOPUD MT (05:52)
[2023-04-06] MEDS ORDERED: KETOROLAC 60MG/2ML VIAL IM ONE (06:00)
[2023-04-06 06:30] VITALS: BP 145/84; PULSE 74; RESP 16; TEMP 98.4
== END 2023-04-06 06:36 | disposition home or self-care (01) ==
LOC: ER 03:01
DX: G89.29 Other chronic pain (principal); M54.50 Low back pain, unspecified; J45.909 Unspecified asthma, uncomplicated; I10 Essential (primary) hypertension; Z88.2 Allergy status to sulfonamides; Z88.0 Allergy status to penicillin; Z86.73 Personal history of transient ischemic attack (TIA), and cerebral infarction without residual deficits; Z79.899 Other long term (current) drug therapy
CPT/HCPCS: 99283; 96372; J1885

== ENCOUNTER 2023-07-21 19:30 | Emergency (ER) | payer MEDICARE, MEDICAID ==
[~2023-07-21] VITALS: Ht 165.1 cm; Wt 59.0 kg
[~2023-07-21 19:30] MED LIST changes: +CYCL10TA21 MT; +DICY-18 PO; +IMOD PO; +LEVO-65 MT; +NAPR-1176 MT; +ONDA4VIA22 PO; +PANT40VI PO; +TOPUD MT
[2023-07-21 19:40] VITALS: BP 175/83; O2SAT 100
[2023-07-21 20:35] LABS: PROTHROMBIN TIME 10.3 sec (9.6-11.0)
[2023-07-21 20:37] LABS: BASOPHILS % 1.2 % (0.0-2.0); EOSINOPHILS % 1.7 % (0.0-5.0); HEMATOCRIT. 28.6 % (36.0-48.0); HEMOGLOBIN. 9.4 g/dL (12.0-16.0); LYMPHOCYTES % 31.6 % (20.0-50.0); MEAN CORPUSCULAR HEMOGLOBIN 32.4 pg (28.0-32.0); MEAN CORPUSCULAR HGB CONC 32.9 g/dL (31.0-37.0); MEAN CORPUSCULAR VOLUME 98.4 fL (81.0-99.0); NEUTROPHILS % 59.5 % (40.0-76.0); PLATELET 313 x1000/uL (130-400); RED BLOOD CELL COUNT 2.91 mill/uL (4.2-5.4); RED CELL DISTRIBUTION WIDTH 15.1 % (11.6-14.6); WHITE BLOOD COUNT 5.9 x1000/uL (4.5-11.0)
[2023-07-21 20:44] LABS: ALANINE AMINOTRANSFERASE 10 IU/L (10-49); ALBUMIN 3.9 g/dL (3.2-4.8); ASPARTATE AMINOTRANSFERASE 16 IU/L (<34); BILIRUBIN TOTAL 0.2 mg/dL (0.1-1.0); CALCIUM 9.1 mg/dL (8.7-10.4); CARBON DIOXIDE 26 mEq/L (21-32); CHLORIDE 108 mEq/L (98-107); CREATININE 0.6 mg/dL (0.6-1.0); GLUCOSE 103 mg/dL (70-105); POTASSIUM 3.6 mEq/L (3.5-5.1); PROTEIN TOTAL 7.1 g/dL (6.0-8.3); SODIUM 142 mEq/L (136-145); UREA NITROGEN BLOOD 10 mg/dL (9-23)
[2023-07-21 21:14] LABS: ETHANOL BLOOD < 10 mg/dL (<10)
[2023-07-21] MEDS ORDERED: MAGNESIUM/ALUMINUM HYDROXIDE/SIMETHICONE 30ML UDC PO ONE (22:00)
[2023-07-21] MEDS ORDERED: ONDANSETRON 4MG ODT PO ONE (22:00)
[2023-07-21] MEDS ORDERED: FAMOTIDINE 20MG TABLET PO ONE (22:00)
[2023-07-21] MEDS ORDERED: ACETAMINOPHEN 325MG TABLET PO ONE (22:00)
[2023-07-21 22:49] LABS: COLOR URINE YELLOW (YELLOW)
[2023-07-21 22:50] LABS: CLARITY URINE SLIGHT CLOUDY (CLEAR); GLUCOSE URINE NEGATIVE (NEGATIVE); KETONES URINE NEGATIVE (NEGATIVE); PROTEIN URINE TRACE (NEGATIVE)
[2023-07-21 22:51] LABS: NITRITE URINE NEGATIVE (NEGATIVE); OCCULT BLOOD URINE TRACE (NEGATIVE); UROBILINOGEN URINE 0.2 E.U./dL (0.2-1.0)
[2023-07-21 22:52] LABS: LEUKOCYTE ESTERASE URINE 2+ (NEGATIVE)
[2023-07-21 23:06] LABS: BACTERIA URINE 3+; RBC URINE 0-2 /hpf (0-2); SQUAMOUS EPITHELIAL CELL URINE FEW /lpf (RARE/1+); WBC URINE 50-100 /hpf (0-2)
[2023-07-21 23:10] LABS: *AMPHETAMINES SCREEN URINE NEGATIVE (NEGATIVE); *BARBITURATES SCREEN URINE NEGATIVE (NEGATIVE); *BENZODIAZEPINES SCREEN URINE NEGATIVE (NEGATIVE); *COCAINE SCREEN URINE NEGATIVE (NEGATIVE); CANNABINOID URINE SCREEN NEGATIVE (NEGATIVE); ECSTASY MDMA SCREEN URINE NEGATIVE (NEGATIVE); METHADONE URINE SCREEN Neg (NEGATIVE); OPIATES URINE SCREEN PRESUMPTIVE POSITIVE (NEGATIVE); PHENCYCLIDINE URINE SCREEN NEGATIVE (NEGATIVE)
[2023-07-21] MEDS ORDERED: CEFP200T13 MT (23:28)
[2023-07-21] MEDS ORDERED: CEFTRIAXONE SODIUM 1 G/VIAL IM ONE (23:30)
[2023-07-21] MEDS ORDERED: LIDOCAINE HCL 1% 20ML VIAL (Pyxis) INJ INFIL ONE (23:30)
[2023-07-21 23:53] VITALS: PULSE 70; RESP 14; TEMP 98.2
== END 2023-07-21 23:58 | disposition home or self-care (01) ==
LOC: ER 19:30
DX: N39.0 Urinary tract infection, site not specified (principal); K21.9 Gastro-esophageal reflux disease without esophagitis; K58.9 Irritable bowel syndrome, unspecified; I10 Essential (primary) hypertension; J45.909 Unspecified asthma, uncomplicated; Z88.0 Allergy status to penicillin; Z88.2 Allergy status to sulfonamides; Z98.890 Other specified postprocedural states; Z79.899 Other long term (current) drug therapy; Z86.73 Personal history of transient ischemic attack (TIA), and cerebral infarction without residual deficits
CPT/HCPCS: 80053; 80305; 81003; 80320; 83690; 85025; 85610; 87086; 87186; 36415; 74176; 96372; 99285; Q0162; J0696; J3490; G0480

== ENCOUNTER 2023-10-10 15:39 | Emergency (ER) | payer MEDICARE, MEDICAID ==
[~2023-10-10] VITALS: Ht 152.4 cm; Wt 56.0 kg
[~2023-10-10 15:39] MED LIST changes: +CEFP200T13 MT
[2023-10-10 15:59] VITALS: O2SAT 98
[2023-10-10] MEDS ORDERED: KETOROLAC 30MG/ML VIAL IV STA (16:04)
[2023-10-10] MEDS ORDERED: ONDANSETRON HCL 4MG/2ML INJ IV STA (16:04)
[2023-10-10] MEDS ORDERED: SODIUM CHLORIDE 0.9% 1,000 ML IV ONE (16:15)
[2023-10-10 16:32] LABS: BASOPHILS % 0.7 % (0.0-2.0); EOSINOPHILS % 0.1 % (0.0-5.0); HEMATOCRIT. 32.2 % (36.0-48.0); HEMOGLOBIN. 10.6 g/dL (12.0-16.0); LYMPHOCYTES % 23.7 % (20.0-50.0); MEAN CORPUSCULAR HEMOGLOBIN 31.8 pg (28.0-32.0); MEAN CORPUSCULAR HGB CONC 32.9 g/dL (31.0-37.0); MEAN CORPUSCULAR VOLUME 96.7 fL (81.0-99.0); MEAN PLATELET VOLUME 10.1 fl (7.4-10.4); MONOCYTES % 4.5 % (2.0-8.0); PLATELET 209 x1000/uL (130-400); RED BLOOD CELL COUNT 3.33 mill/uL (4.2-5.4); RED CELL DISTRIBUTION WIDTH 13.8 % (11.6-14.6); WHITE BLOOD COUNT 6.1 x1000/uL (4.5-11.0)
[2023-10-10 16:41] LABS: INR 1.1; PROTHROMBIN TIME 12.4 sec (9.6-11.0)
[2023-10-10 16:44] LABS: ALANINE AMINOTRANSFERASE 25 IU/L (10-49); ALBUMIN 4.1 g/dL (3.2-4.8); ASPARTATE AMINOTRANSFERASE 21 IU/L (<34); BILIRUBIN TOTAL 1.1 mg/dL (0.1-1.0); CALCIUM 8.8 mg/dL (8.7-10.4); CARBON DIOXIDE 29 mEq/L (21-32); CHLORIDE 103 mEq/L (98-107); CREATININE 0.7 mg/dL (0.6-1.0); GLUCOSE 115 mg/dL (70-105); POTASSIUM 3.5 mEq/L (3.5-5.1); PROTEIN TOTAL 7.8 g/dL (6.0-8.3); SODIUM 139 mEq/L (136-145); UREA NITROGEN BLOOD 14 mg/dL (9-23)
[2023-10-10 16:46] LABS: ETHANOL BLOOD < 10 mg/dL (<10); TROPONIN I HIGH SENSITIVITY < 4 ng/L (3.0-34)
[2023-10-10] MEDS ORDERED: KETOROLAC 60MG/2ML VIAL IM ONE (19:30)
[2023-10-10] MEDS ORDERED: ONDANSETRON 4MG ODT PO ONE (19:30)
[2023-10-10] MEDS: ONDANSETRON 4MG ODT PO ONE (22:15)
[2023-10-10] MEDS: KETOROLAC 60MG/2ML VIAL IM ONE (22:18)
[2023-10-10 22:22] VITALS: BP 142/85; PULSE 76; RESP 15; TEMP 99.1
[2023-10-11] MEDS ORDERED: TOPUD MT (01:11)
[2023-10-13] MEDS ORDERED: FERR325T6 MT (16:59)
== END 2023-10-11 00:13 | disposition home or self-care (01) ==
LOC: ER 15:39
DX: R10.13 Epigastric pain (principal); G89.29 Other chronic pain; K21.9 Gastro-esophageal reflux disease without esophagitis; I10 Essential (primary) hypertension; J45.909 Unspecified asthma, uncomplicated; Z87.440 Personal history of urinary (tract) infections; Z79.899 Other long term (current) drug therapy
CPT/HCPCS: 80053; 80320; 83690; 85025; 85610; 84484; 36415; 96372; 99283; Q0162; J1885; J7030; G0480

== ENCOUNTER 2023-10-11 00:11 | Emergency (ER) | payer MEDICARE, MEDICAID ==
[~2023-10-11] VITALS: Ht 152.4 cm; Wt 58.0 kg
[2023-10-11 01:03] VITALS: PULSE 72
[2023-10-11 01:06] VITALS: BP 146/86; RESP 18; TEMP 98.4; O2SAT 99
[2023-10-11] MEDS ORDERED: TOPUD MT (01:11)
[2023-10-11] MEDS ORDERED: ACETAMINOPHEN 325MG TABLET PO ONE (01:15)
[2023-10-11] MEDS: ACETAMINOPHEN 325MG TABLET PO NR (03:52)
[2023-10-13] MEDS ORDERED: FERR325T6 MT (16:59)
== END 2023-10-11 03:54 | disposition home or self-care (01) ==
LOC: ER 00:11
DX: N64.4 Mastodynia (principal); F19.90 Other psychoactive substance use, unspecified, uncomplicated; K21.9 Gastro-esophageal reflux disease without esophagitis; J45.909 Unspecified asthma, uncomplicated; I10 Essential (primary) hypertension; K58.8 Other irritable bowel syndrome; Z86.73 Personal history of transient ischemic attack (TIA), and cerebral infarction without residual deficits; Z98.890 Other specified postprocedural states; Z88.2 Allergy status to sulfonamides; Z88.8 Allergy status to other drugs, medicaments and biological substances
CPT/HCPCS: 99282

== ENCOUNTER 2023-11-09 18:42 | Emergency (ER) | payer MEDICARE, MEDICAID ==
[~2023-11-09] VITALS: Ht 167.6 cm; Wt 65.0 kg
[~2023-11-09 18:42] MED LIST changes: -ACET-2708 MT; -CEFP200T13 MT; -CYCL10TA21 MT; -DICY-18 PO; +FERR325T6 MT; -IBUP-2029 MT; -IMOD PO; -LACT10SO81 PO; -LEVO-65 MT; -MAG355OR21 MT; -METO-539 PO; -NAPR-1176 MT; -ONDA4VIA22 PO; -PANT40VI PO; -TOPUD MT; -TOPUD PO
[2023-11-09 18:51] VITALS: O2SAT 99
[2023-11-09] MEDS: KETOROLAC 30MG/ML VIAL IM ONE (21:00)
[2023-11-09 23:23] LABS: CLARITY URINE CLOUDY (CLEAR); COLOR URINE YELLOW (YELLOW); GLUCOSE URINE NEGATIVE (NEGATIVE); KETONES URINE NEGATIVE (NEGATIVE); LEUKOCYTE ESTERASE URINE 3+ (NEGATIVE); NITRITE URINE NEGATIVE (NEGATIVE); OCCULT BLOOD URINE TRACE (NEGATIVE); PROTEIN URINE TRACE (NEGATIVE); UROBILINOGEN URINE 0.2 E.U./dL (0.2-1.0)
[2023-11-09 23:34] LABS: BASOPHILS % 0.3 % (0.0-2.0); EOSINOPHILS % 2.5 % (0.0-5.0); HEMATOCRIT. 31.5 % (36.0-48.0); HEMOGLOBIN. 10.3 g/dL (12.0-16.0); LYMPHOCYTES % 39.4 % (20.0-50.0); MEAN CORPUSCULAR HEMOGLOBIN 30.5 pg (28.0-32.0); MEAN CORPUSCULAR HGB CONC 32.6 g/dL (31.0-37.0); MEAN CORPUSCULAR VOLUME 93.4 fL (81.0-99.0); MEAN PLATELET VOLUME 9.2 fl (7.4-10.4); MONOCYTES % 9.7 % (2.0-8.0); NEUTROPHILS % 48.1 % (40.0-76.0); PLATELET 312 x1000/uL (130-400); RED BLOOD CELL COUNT 3.37 mill/uL (4.2-5.4); RED CELL DISTRIBUTION WIDTH 13.4 % (11.6-14.6); WHITE BLOOD COUNT 4.1 x1000/uL (4.5-11.0)
[2023-11-09 23:51] LABS: WBC URINE TNTC /hpf (0-2)
[2023-11-09 23:52] LABS: BACTERIA URINE 3+; SQUAMOUS EPITHELIAL CELL URINE FEW /lpf (RARE/1+)
[2023-11-10 00:01] LABS: ALANINE AMINOTRANSFERASE 9 IU/L (10-49); ALBUMIN 4.5 g/dL (3.2-4.8); ASPARTATE AMINOTRANSFERASE 12 IU/L (<34); BILIRUBIN TOTAL 0.2 mg/dL (0.1-1.0); CALCIUM 9.6 mg/dL (8.7-10.4); CARBON DIOXIDE 26 mEq/L (21-32); CHLORIDE 101 mEq/L (98-107); CREATININE 0.7 mg/dL (0.6-1.0); GLUCOSE 94 mg/dL (70-105); POTASSIUM 3.4 mEq/L (3.5-5.1); PROTEIN TOTAL 8.4 g/dL (6.0-8.3); SODIUM 136 mEq/L (136-145); UREA NITROGEN BLOOD 11 mg/dL (9-23)
[2023-11-10] MEDS ORDERED: IBUP-2029 MT (00:22)
[2023-11-10] MEDS ORDERED: CEFP200T14 MT (00:22)
[2023-11-10] MEDS ORDERED: CEFTRIAXONE SODIUM 1G VIAL IM ONE (00:30)
[2023-11-10] MEDS ORDERED: LIDOCAINE HCL/PF 1% 10 MG/ML 5ML VIAL INFIL ONE (01:30)
[2023-11-10] MEDS: LIDOCAINE HCL/PF 1% 10 MG/ML 5ML VIAL INFIL NR (02:15)
[2023-11-10] MEDS: CEFTRIAXONE SODIUM 1G VIAL IM NR (02:23)
[2023-11-10 03:00] VITALS: BP 130/70; PULSE 70; RESP 16; TEMP 98.2
== END 2023-11-10 04:37 | disposition home or self-care (01) ==
LOC: ER 18:42
DX: N12 Tubulo-interstitial nephritis, not specified as acute or chronic (principal); F19.90 Other psychoactive substance use, unspecified, uncomplicated; J45.909 Unspecified asthma, uncomplicated; K21.9 Gastro-esophageal reflux disease without esophagitis; I10 Essential (primary) hypertension; K58.9 Irritable bowel syndrome, unspecified; Z86.73 Personal history of transient ischemic attack (TIA), and cerebral infarction without residual deficits; Z98.890 Other specified postprocedural states; Z88.0 Allergy status to penicillin; Z88.2 Allergy status to sulfonamides
CPT/HCPCS: 99285; 76770; 80053; 81003; 85025; 87086; 36415; 96372 ×2; J1885; J0696; J3490

== ENCOUNTER 2024-01-09 09:06 | Emergency (ER) | payer MEDICARE, MEDICAID ==
[~2024-01-09] VITALS: Ht 162.6 cm; Wt 60.0 kg
[~2024-01-09 09:06] MED LIST changes: +CEFP200T14 MT; +IBUP-2029 MT
[2024-01-09 09:14] VITALS: O2SAT 100
[2024-01-09 09:58] LABS: BASOPHILS % 0.6 % (0.0-2.0); EOSINOPHILS % 0.7 % (0.0-5.0); HEMATOCRIT. 31.9 % (36.0-48.0); HEMOGLOBIN. 10.7 g/dL (12.0-16.0); LYMPHOCYTES % 18.3 % (20.0-50.0); MEAN CORPUSCULAR HGB CONC 33.6 g/dL (31.0-37.0); MEAN CORPUSCULAR VOLUME 92.4 fL (81.0-99.0); MEAN PLATELET VOLUME 8.2 fl (7.4-10.4); NEUTROPHILS % 74.4 % (40.0-76.0); PLATELET 294 x1000/uL (130-400); RED BLOOD CELL COUNT 3.45 mill/uL (4.2-5.4); RED CELL DISTRIBUTION WIDTH 14.5 % (11.6-14.6); WHITE BLOOD COUNT 6.1 x1000/uL (4.5-11.0)
[2024-01-09 10:12] LABS: PROTHROMBIN TIME 10.9 sec (9.6-11.0)
[2024-01-09 10:13] LABS: CHLORIDE 103 mEq/L (98-107); SODIUM 137 mEq/L (136-145)
[2024-01-09 10:14] LABS: CARBON DIOXIDE 23 mEq/L (21-32)
[2024-01-09 10:19] LABS: CREATININE 0.6 mg/dL (0.6-1.0); GLUCOSE 110 mg/dL (70-105); UREA NITROGEN BLOOD 7 mg/dL (9-23)
[2024-01-09 10:27] LABS: HCG SCREEN NEGATIVE
[2024-01-09 10:56] LABS: TROPONIN I HIGH SENSITIVITY < 4 ng/L (3.0-34)
[2024-01-09] MEDS: ONDANSETRON HCL 4MG/2ML INJ IV ONE ×2 (13:13→13:26)
[2024-01-09] MEDS: FAMOTIDINE 20MG/2ML VIAL IV ONE ×2 (13:13→13:26)
[2024-01-09] MEDS: KETOROLAC 30MG/ML VIAL IV ONE (13:13)
[2024-01-09] MEDS: SODIUM CHLORIDE 0.9% 1,000 ML IV ONE ×2 (13:14→13:25)
[2024-01-09 15:50] VITALS: BP 154/55; PULSE 77; RESP 24; TEMP 97.7
== END 2024-01-09 16:07 | disposition home or self-care (01) ==
LOC: ER 10:29
DX: R10.13 Epigastric pain (principal); J45.909 Unspecified asthma, uncomplicated; K21.9 Gastro-esophageal reflux disease without esophagitis; I10 Essential (primary) hypertension; Z86.73 Personal history of transient ischemic attack (TIA), and cerebral infarction without residual deficits; Z87.440 Personal history of urinary (tract) infections
CPT/HCPCS: 99284; 96374; 96375; 96361; 80048; 84703; 83690; 85025; 85610; 84484; 36415; J3490; J1885; J2405; J7030

== ENCOUNTER 2024-04-19 04:59 | Inpatient (IN) | payer MEDICARE ==
[~2024-04-19] VITALS: Ht 154.9 cm; Wt 54.9 kg
[~2024-04-19 04:59] MED LIST changes: +BUPR-114 PO; -CEFP200T14 MT; -GABA-290 MT; -HYDR-4009 PO; +NITR-87 MT; +PREG50CA PO; +PROM25TA13 MT; +PROT20 MT; +TOPUD MT; +TRAM-529 PO
[2024-04-19 07:09] LABS: BASOPHILS % 0.8 % (0.0-2.0); EOSINOPHILS % 2.5 % (0.0-5.0); HEMATOCRIT. 31.8 % (36.0-48.0); HEMOGLOBIN. 10.3 g/dL (12.0-16.0); LYMPHOCYTES % 25.1 % (20.0-50.0); MEAN CORPUSCULAR HEMOGLOBIN 31.2 pg (28.0-32.0); MEAN CORPUSCULAR HGB CONC 32.3 g/dL (31.0-37.0); MEAN CORPUSCULAR VOLUME 96.7 fL (81.0-99.0); MEAN PLATELET VOLUME 8.2 fl (7.4-10.4); MONOCYTES % 8.9 % (2.0-8.0); NEUTROPHILS % 62.7 % (40.0-76.0); PLATELET 247 x1000/uL (130-400); RED BLOOD CELL COUNT 3.29 mill/uL (4.2-5.4); RED CELL DISTRIBUTION WIDTH 15.6 % (11.6-14.6)
[2024-04-19 07:17] LABS: CHLORIDE 100 mEq/L (98-107); POTASSIUM 3.7 mEq/L (3.5-5.1); SODIUM 137 mEq/L (136-145)
[2024-04-19 07:18] LABS: CALCIUM 9.2 mg/dL (8.7-10.4); CARBON DIOXIDE 29 mEq/L (21-32)
[2024-04-19 07:23] LABS: CREATININE 0.6 mg/dL (0.6-1.0); GLUCOSE 123 mg/dL (70-105)
[2024-04-19 07:25] LABS: ALANINE AMINOTRANSFERASE 11 IU/L (10-49); ASPARTATE AMINOTRANSFERASE 18 IU/L (<34); BILIRUBIN DIRECT 0.1 mg/dL (<=3.0); BILIRUBIN TOTAL 0.4 mg/dL (0.1-1.0); PROTEIN TOTAL 7.2 g/dL (6.0-8.3)
[2024-04-19 07:41] LABS: TROPONIN I HIGH SENSITIVITY < 4 ng/L (3.0-34); UREA NITROGEN BLOOD < 5 mg/dL (9-23)
[2024-04-19] MEDS: ACETAMINOPHEN 325MG TABLET PO NR (08:04)
[2024-04-19] MEDS: MORPHINE SULFATE 2 MG/ML INJ (NOT FOR IM USE) IV ONE (08:17)
[2024-04-19 08:20] LABS: CLARITY URINE CLEAR (CLEAR); COLOR URINE YELLOW (YELLOW); GLUCOSE URINE NEGATIVE (NEGATIVE); KETONES URINE NEGATIVE (NEGATIVE); LEUKOCYTE ESTERASE URINE 1+ (NEGATIVE); NITRITE URINE NEGATIVE (NEGATIVE); OCCULT BLOOD URINE NEGATIVE (NEGATIVE); PH URINE 5.5 (4.5-8.0); PROTEIN URINE NEGATIVE (NEGATIVE); SPECIFIC GRAVITY URINE 1.005 (1.005-1.030); UROBILINOGEN URINE 0.2 E.U./dL (0.2-1.0)
[2024-04-19 09:47] LABS: BACTERIA URINE TRACE; SQUAMOUS EPITHELIAL CELL URINE 1+ /lpf (RARE/1+)
[2024-04-19 09:49] LABS: RBC URINE NONE SEEN /hpf (0-2)
[2024-04-19] MEDS: MORPHINE SULFATE 2 MG/ML INJ (NOT FOR IM USE) IV NR (13:11)
[2024-04-19] MEDS: CEFTRIAXONE 1GM/50ML 50 ML IV NR (14:48)
[2024-04-19 15:34] VITALS: BP 124/54; PULSE 69; RESP 18; TEMP 36.418
[2024-04-19] MEDS ORDERED: ACETAMINOPHEN 325MG TABLET PO PRN (16:15)
[2024-04-19] MEDS ORDERED: DOCUSATE SODIUM 100MG CAPSULE PO PRN (16:15)
[2024-04-19] MEDS ORDERED: CLONIDINE 0.1MG TABLET PO PRN (16:15)
[2024-04-19] MEDS ORDERED: NITROGLYCERIN 0.4MG TABLET SL SL PRN (16:15)
[2024-04-19] MEDS ORDERED: IPRATROPIUM/ALBUTEROL 0.5-3(2.5)MG/3ML NEB NEB PRN (16:15)
[2024-04-19] MEDS ORDERED: GUAIFENESIN 200MG/10ML SUGAR FREE UDC PO PRN (16:15)
[2024-04-19] MEDS: KETOROLAC 30MG/ML VIAL IV PRN (16:36)
[2024-04-19 16:41] LABS: IRON 79 ug/dL (50-170)
[2024-04-19 16:42] LABS: TRIGLYCERIDE 101 mg/dL (0-150)
[2024-04-19 16:43] LABS: LDL CHOLESTEROL 66 mg/dL (5-100)
[2024-04-19 16:44] LABS: CHOLESTEROL 151 mg/dL (<200); HDL CHOLESTEROL 65 mg/dL (>65); THYROID STIMULATING HORMONE 1.45 uIU/mL (0.55-4.78); TOTAL IRON BINDING CAPACITY 284 ug/dl (250-425)
[2024-04-19 16:45] LABS: VITAMIN B12 SERUM 454 pg/mL (211-911)
[2024-04-19 16:47] LABS: T4 FREE 1.04 ng/dL (0.89-1.76)
[2024-04-19 16:52] LABS: FOLIC ACID (FOLATE) SERUM 3.95 ng/mL (>5.38)
[2024-04-19 16:53] LABS: ETHANOL BLOOD < 10 mg/dL (<10)
[2024-04-19] MEDS: LEVOFLOXACIN 750MG PREMIX 100 ML IV SCH (16:57)
[2024-04-19] MEDS: ENOXAPARIN 40MG/0.4ML SYR SUBCUT SCH (17:09)
[2024-04-19 20:00] VITALS: BP 106/45; PULSE 69; RESP 18; TEMP 36.3918; O2SAT 96
[2024-04-19] MEDS: FAMOTIDINE 20MG TABLET PO SCH (20:48)
[2024-04-19] MEDS: ZOLPIDEM TARTRATE 5MG TABLET PO PRN (20:48)
[2024-04-20] VITALS: BP 97/47; PULSE 73; RESP 20; TEMP 36.28068; O2SAT 100
[2024-04-20 00:09] LABS: CREATINE KINASE MB FRACTION < 0.5 ng/mL (0.5-3.6)
[2024-04-20 00:10] LABS: CREATINE KINASE 115 IU/L (34-145)
[2024-04-20] MEDS: FOLIC ACID 1 MG in SODIUM CHLORIDE 0.9% 500 ML IV NR (00:11)
[2024-04-20 00:32] LABS: TROPONIN I HIGH SENSITIVITY < 4 ng/L (3.0-34)
[2024-04-20 04:00] VITALS: BP 117/62; PULSE 79; RESP 20; TEMP 36.22512; O2SAT 100
[2024-04-20] MEDS: ACETAMINOPHEN 325MG TABLET PO PRN (05:45)
[2024-04-20 08:00] VITALS: BP 126/62; PULSE 73; RESP 20; TEMP 36.22512; O2SAT 100
[2024-04-20] MEDS: FOLIC ACID 1MG TABLET PO SCH (08:36)
[2024-04-20] MEDS: ASPIRIN 325MG EC TABLET PO SCH (09:00)
[2024-04-20 10:10] LABS: BASOPHILS % 0.2 % (0.0-2.0); EOSINOPHILS % 4.4 % (0.0-5.0); HEMATOCRIT. 31.5 % (36.0-48.0); HEMOGLOBIN. 9.8 g/dL (12.0-16.0); LYMPHOCYTES % 31.4 % (20.0-50.0); MEAN CORPUSCULAR HEMOGLOBIN 30.3 pg (28.0-32.0); MEAN CORPUSCULAR VOLUME 97.7 fL (81.0-99.0); MEAN PLATELET VOLUME 9.1 fl (7.4-10.4); MONOCYTES % 10.1 % (2.0-8.0); NEUTROPHILS % 53.9 % (40.0-76.0); PLATELET 249 x1000/uL (130-400); RED BLOOD CELL COUNT 3.23 mill/uL (4.2-5.4); RED CELL DISTRIBUTION WIDTH 15.4 % (11.6-14.6); WHITE BLOOD COUNT 4.2 x1000/uL (4.5-11.0)
[2024-04-20 11:00] LABS: CALCIUM 8.5 mg/dL (8.7-10.4); CARBON DIOXIDE 29 mEq/L (21-32); CHLORIDE 104 mEq/L (98-107); POTASSIUM 4.1 mEq/L (3.5-5.1); SODIUM 137 mEq/L (136-145)
[2024-04-20 11:05] LABS: CREATININE 0.6 mg/dL (0.6-1.0); GLUCOSE 115 mg/dL (70-105)
[2024-04-20 11:06] LABS: CREATINE KINASE MB FRACTION < 0.5 ng/mL (0.5-3.6); UREA NITROGEN BLOOD 12 mg/dL (9-23)
[2024-04-20 11:08] LABS: CREATINE KINASE 85 IU/L (34-145); PHOSPHORUS 3.5 mg/dL (2.5-4.9)
[2024-04-20 11:10] LABS: TROPONIN I HIGH SENSITIVITY < 4 ng/L (3.0-34)
[2024-04-20 12:00] VITALS: BP 137/62; PULSE 73; RESP 20; TEMP 36.22512; O2SAT 100
[2024-04-20] MEDS: MAGNESIUM/ALUMINUM HYDROXIDE/SIMETHICONE 30ML UDC PO PRN (14:07)
[2024-04-20 20:00] VITALS: BP 136/82; PULSE 71; RESP 20; TEMP 36.28068; O2SAT 98
[2024-04-21 04:00] VITALS: BP 138/75; PULSE 84; RESP 20; TEMP 36.22512; O2SAT 97
[2024-04-21] MEDS: ONDANSETRON HCL 4MG/2ML INJ IV PRN (06:58)
[2024-04-21 08:00] VITALS: BP 141/71; PULSE 71; RESP 20; TEMP 36.22512; O2SAT 100
[2024-04-21 12:00] VITALS: BP 131/71; PULSE 73; RESP 20; TEMP 36.22512; O2SAT 98
[2024-04-21] MEDS ORDERED: SUCR1TAB30 MT (13:44)
[2024-04-21] MEDS ORDERED: PROT20 MT (13:44)
[2024-04-21] MEDS: LEVOFLOXACIN 750MG PREMIX 100 ML IV SCH (15:59)
[2024-04-21 16:00] VITALS: BP 139/64; PULSE 74; RESP 20; TEMP 36.3918; O2SAT 97
[2024-04-21 20:00] VITALS: BP 148/58; PULSE 74; RESP 18; TEMP 36.28068; O2SAT 100
[2024-04-22] VITALS: BP 150/60; PULSE 72; RESP 20; TEMP 36.44736; O2SAT 97
[2024-04-22 04:00] VITALS: BP 131/68; PULSE 77; RESP 20; TEMP 36.50292; O2SAT 100
[2024-04-22 05:27] VITALS: RESP 20
[2024-04-22] MEDS: FAMOTIDINE 20MG TABLET PO SCH (10:21)
[2024-04-22 10:45] VITALS: BP 139/79; PULSE 69; TEMP 98.6; O2SAT 100
== END 2024-04-22 12:29 | disposition home health service (06) | DRG 690 ==
LOC: ER 05:08 → EDBEDREQ 12:33 → 6WST 13:01 → EDBEDREQTM 13:02 → EDBEDREQ 13:02
PROVIDERS: ADMIT Internal Medicine; ATTEND Internal Medicine
DX: N39.0 Urinary tract infection, site not specified (principal); I69.351 Hemiplegia and hemiparesis following cerebral infarction affecting right dominant side; K29.70 Gastritis, unspecified, without bleeding; M10.9 Gout, unspecified; J44.89 Other specified chronic obstructive pulmonary disease; I10 Essential (primary) hypertension; D52.9 Folate deficiency anemia, unspecified; J45.909 Unspecified asthma, uncomplicated; K21.9 Gastro-esophageal reflux disease without esophagitis
CPT/HCPCS: 36415; 71045; 74176; 80048; 80061; 80076; 80320; 81003; 82550; 82553; 82607; 82746; 83036; 83540; 83550; 83735; 84100; 84439; 84443; 84484; 85025; 93005; 93970; 99285; C1893; J0696; J1650; J1885; J1956; J2270; J2405; J3490; J7040; G0480

== ENCOUNTER 2024-05-04 20:50 | Emergency (ER) | payer MEDICARE ==
[~2024-05-04] VITALS: Ht 165.1 cm; Wt 59.0 kg
[~2024-05-04 20:50] MED LIST changes: -FAMO-135 MT; -IBUP-2029 MT; -NITR-87 MT; -PROM25TA13 MT; +SUCR1TAB30 MT; -TRAM-529 PO
[2024-05-04 21:00] VITALS: O2SAT 99
[2024-05-05] MEDS: MAGNESIUM/ALUMINUM HYDROXIDE/SIMETHICONE 30ML UDC PO ONE (00:10)
[2024-05-05] MEDS: SODIUM CHLORIDE 0.9% 1,000 ML IV ONE (00:12)
[2024-05-05] MEDS: ONDANSETRON HCL 4MG/2ML INJ IV ONE (00:28)
[2024-05-05] MEDS: FAMOTIDINE 20MG/2ML VIAL IV ONE (00:28)
[2024-05-05 00:47] LABS: BASOPHILS % 0.9 % (0.0-2.0); EOSINOPHILS % 5.7 % (0.0-5.0); HEMATOCRIT. 28.7 % (36.0-48.0); HEMOGLOBIN. 9.4 g/dL (12.0-16.0); LYMPHOCYTES % 40.9 % (20.0-50.0); MEAN CORPUSCULAR HEMOGLOBIN 31.3 pg (28.0-32.0); MEAN CORPUSCULAR HGB CONC 32.7 g/dL (31.0-37.0); MEAN CORPUSCULAR VOLUME 95.8 fL (81.0-99.0); MEAN PLATELET VOLUME 8.5 fl (7.4-10.4); MONOCYTES % 8.8 % (2.0-8.0); NEUTROPHILS % 43.7 % (40.0-76.0); PLATELET 226 x1000/uL (130-400); RED BLOOD CELL COUNT 2.99 mill/uL (4.2-5.4); RED CELL DISTRIBUTION WIDTH 14.9 % (11.6-14.6); WHITE BLOOD COUNT 4.1 x1000/uL (4.5-11.0)
[2024-05-05] MEDS: MORPHINE SULFATE 4 MG/ML INJ (FOR IV/IM USE) IV ONE (00:49)
[2024-05-05 00:53] LABS: CARBON DIOXIDE 26 mEq/L (21-32); CHLORIDE 111 mEq/L (98-107); POTASSIUM 3.1 mEq/L (3.5-5.1); SODIUM 142 mEq/L (136-145)
[2024-05-05 00:54] LABS: CALCIUM 8.7 mg/dL (8.7-10.4)
[2024-05-05 00:58] LABS: CREATININE 0.7 mg/dL (0.6-1.0)
[2024-05-05 00:59] LABS: GLUCOSE 107 mg/dL (70-105); UREA NITROGEN BLOOD 6 mg/dL (9-23)
[2024-05-05 01:01] LABS: ALANINE AMINOTRANSFERASE 10 IU/L (10-49); ALBUMIN 3.5 g/dL (3.2-4.8); ASPARTATE AMINOTRANSFERASE 15 IU/L (<34); BILIRUBIN TOTAL 0.7 mg/dL (0.1-1.0); PROTEIN TOTAL 6.4 g/dL (6.0-8.3)
[2024-05-05 01:11] LABS: TROPONIN I HIGH SENSITIVITY < 4 ng/L (3.0-34)
[2024-05-05] MEDS ORDERED: POTASSIUM BICARB/CIT ACID 25 MEQ TABLET.EFF PO ONE (02:15)
[2024-05-05 02:48] LABS: CLARITY URINE CLEAR (CLEAR); COLOR URINE YELLOW (YELLOW); GLUCOSE URINE NEGATIVE (NEGATIVE); KETONES URINE NEGATIVE (NEGATIVE); LEUKOCYTE ESTERASE URINE 1+ (NEGATIVE); NITRITE URINE NEGATIVE (NEGATIVE); OCCULT BLOOD URINE NEGATIVE (NEGATIVE); PROTEIN URINE NEGATIVE (NEGATIVE); SPECIFIC GRAVITY URINE 1.007 (1.005-1.030); UROBILINOGEN URINE 0.2 E.U./dL (0.2-1.0)
[2024-05-05] MEDS: POTASSIUM CHLORIDE 20MEQ/PACKET PO ONE (03:40)
[2024-05-05] MEDS: LIDOCAINE 5% PATCH TOP SCH (03:41)
[2024-05-05 04:41] LABS: BACTERIA URINE TRACE; RBC URINE NONE SEEN /hpf (0-2); SQUAMOUS EPITHELIAL CELL URINE FEW /lpf (RARE/1+)
[2024-05-05] MEDS ORDERED: IOHEXOL-300 100 ML BOTTLE ONE (06:10)
[2024-05-05] MEDS ORDERED: CEFP200T13 MT (06:38)
[2024-05-05] MEDS: KETOROLAC 30MG/ML VIAL IV ONE (07:59)
[2024-05-05] MEDS: CEFTRIAXONE 1GM/50ML 50 ML IV ONE (07:59)
[2024-05-05 08:01] VITALS: BP 148/79; PULSE 61; RESP 19; TEMP 36.55848; O2SAT 100
== END 2024-05-05 08:35 | disposition home or self-care (01) ==
LOC: ER 20:50 → CANBEDREQ 05-05 07:10 → ER 05-05 08:35
DX: N39.0 Urinary tract infection, site not specified (principal); K58.9 Irritable bowel syndrome, unspecified; J44.9 Chronic obstructive pulmonary disease, unspecified; K21.9 Gastro-esophageal reflux disease without esophagitis; I10 Essential (primary) hypertension; Z86.73 Personal history of transient ischemic attack (TIA), and cerebral infarction without residual deficits; Z87.440 Personal history of urinary (tract) infections; Z79.899 Other long term (current) drug therapy; Z88.0 Allergy status to penicillin; Z88.2 Allergy status to sulfonamides
CPT/HCPCS: 99285; 36415; 93005; 74177; 96365; 96375; 80053; 81003; 83690; 85025; 84484; J7030; Q9967; J0696; J3490; J1885; J2405; J2270

== ENCOUNTER 2024-05-30 02:12 | Inpatient (IN) | payer MEDICARE ==
[2024-05-30] VITALS (52 sets, daily range): BP systolic 82–184; BP diastolic 54–107; PULSE 50–111; RESP 16–24; TEMP 36.114–37.1964; O2SAT 98–100
[~2024-05-30] VITALS: Ht 162.6 cm; Wt 48.1 kg
[~2024-05-30 02:12] MED LIST changes: +CEFP200T13 MT
[2024-05-30] MEDS: SODIUM CHLORIDE 0.9% 1,000 ML IV ONE (04:27)
[2024-05-30] MEDS: MORPHINE SULFATE 4 MG/ML INJ (FOR IV/IM USE) IV ONE (04:28)
[2024-05-30] MEDS: ONDANSETRON HCL 4MG/2ML INJ IV ONE (04:28)
[2024-05-30] MEDS: FAMOTIDINE 20MG/2ML VIAL IV ONE (04:28)
[2024-05-30] MEDS: DEXAMETHASONE 10 MG/ML VIAL IV ONE (04:28)
[2024-05-30] MEDS: DIPHENHYDRAMINE 50MG/ML VIAL IV ONE (04:28)
[2024-05-30 04:33] LABS: BASOPHILS % 1.1 % (0.0-2.0); EOSINOPHILS % 0.1 % (0.0-5.0); HEMATOCRIT. 37.9 % (36.0-48.0); HEMOGLOBIN. 12.3 g/dL (12.0-16.0); MEAN CORPUSCULAR HGB CONC 32.6 g/dL (31.0-37.0); MEAN CORPUSCULAR VOLUME 95.3 fL (81.0-99.0); MEAN PLATELET VOLUME 8.8 fl (7.4-10.4); MONOCYTES % 5.6 % (2.0-8.0); NEUTROPHILS % 74.2 % (40.0-76.0); PLATELET 215 x1000/uL (130-400); RED BLOOD CELL COUNT 3.97 mill/uL (4.2-5.4); RED CELL DISTRIBUTION WIDTH 16.6 % (11.6-14.6); WHITE BLOOD COUNT 6.4 x1000/uL (4.5-11.0)
[2024-05-30 04:38] LABS: CARBON DIOXIDE 28 mEq/L (21-32); CHLORIDE 102 mEq/L (98-107); POTASSIUM 4.2 mEq/L (3.5-5.1); SODIUM 138 mEq/L (136-145)
[2024-05-30 04:39] LABS: CALCIUM 8.8 mg/dL (8.7-10.4)
[2024-05-30 04:44] LABS: CREATININE 0.6 mg/dL (0.6-1.0); GLUCOSE 136 mg/dL (70-105); UREA NITROGEN BLOOD 10 mg/dL (9-23)
[2024-05-30] MEDS: IOHEXOL-300 100 ML BOTTLE ONE (05:40)
[2024-05-30] MEDS ORDERED: MIDAZOLAM HCL 100 MG in DEXT 5% WATER 80 ML IV ONE (06:15)
[2024-05-30] MEDS: SUCCINYLCHOLINE CHLORIDE 200MG/10ML IV ONE (06:28)
[2024-05-30] MEDS: PROPOFOL 10MG/ML 100ML 100 ML IV ONE (06:49)
[2024-05-30] MEDS ORDERED: FENTANYL 2500MCG/250ML PMX 250 ML IV STA (07:02)
[2024-05-30] MEDS: MIDAZOLAM 100MG/100ML PMX 100 ML IV PRN (07:19)
[2024-05-30] MEDS: CEFTRIAXONE 1GM/50ML 50 ML IV SCH (07:45)
[2024-05-30] MEDS: SODIUM CHLORIDE 0.9% 1000ML BAG (SEPSIS BOLUS) IV ONE (07:45)
[2024-05-30] MEDS: FENTANYL 2500MCG/250ML PMX 250 ML IV PRN (08:00)
[2024-05-30 08:28] LABS: LACTIC ACID 5.1 mmol/L (0.4-2.0)
[2024-05-30] MEDS: CLINDAMYCIN 600MG PREMIX 50 ML IV SCH (08:48)
[2024-05-30] MEDS ORDERED: NOREPINEPHRINE 8MG/250ML PMX 250 ML IV PRN (09:30)
[2024-05-30] MEDS: KETAMINE HCL 50 MG/ML 10ML IV ONE (09:36)
[2024-05-30] MEDS: PROPOFOL 10MG/ML 100ML 100 ML IV PRN (10:18)
[2024-05-30 10:38] LABS: BG BASE EXCESS -5.4 mmol/L (-2.0-3.0); BG CARBOXYHEMOGLOBIN 0.3 % (0.5-1.5); BG DEOXYHEMOGLOBIN 0.5 % (0.0-5.0); BG FRACTION INSPIRED OXYGEN 40; BG HCO3 ACT 17.5 mmol/L (21.0-28.0); BG METHEMOGLOBIN 0.2 % (0.5-1.5); BG OXYGEN SATURATION 99.5 % (94.0-98.0); BG PCO2 26.3 mmHg (32.0-45.0); BG PH 7.441 (7.350-7.450); BG PO2 220.3 mmHg (83.0-108.0); BG SAMPLE SITE RIGHT RADIAL; BG TOTAL HEMOGLOBIN 10.9 g/dL (12.0-16.0); BG VENT MODE VENT - AC
[2024-05-30] MEDS ORDERED: ACETAMINOPHEN 325MG TABLET PO PRN (17:45)
[2024-05-30] MEDS ORDERED: ONDANSETRON HCL 4MG/2ML INJ IV PRN (17:45)
[2024-05-30] MEDS ORDERED: HYDRALAZINE 20MG/ML VIAL IV PRN (17:45)
[2024-05-30] MEDS: PANTOPRAZOLE SODIUM 40 MG/VIAL IV SCH (18:12)
[2024-05-30] MEDS: CLONIDINE HCL 0.1MG/24HR PATCH TD NR (18:12)
[2024-05-30] MEDS: DEXT 5%/0.9% NACL 1,000 ML IV SCH (18:13)
[2024-05-30] MEDS: KETOROLAC 30MG/ML VIAL IV NR (18:13)
[2024-05-30 19:23] LABS: *AMPHETAMINES SCREEN URINE NEGATIVE (NEGATIVE); *BARBITURATES SCREEN URINE NEGATIVE (NEGATIVE); *BENZODIAZEPINES SCREEN URINE PRESUMPTIVE POSITIVE (NEGATIVE); *COCAINE SCREEN URINE NEGATIVE (NEGATIVE); METHADONE URINE SCREEN NEGATIVE (NEGATIVE)
[2024-05-30 19:24] LABS: CANNABINOID URINE SCREEN NEGATIVE (NEGATIVE); ECSTASY MDMA SCREEN URINE NEGATIVE (NEGATIVE); OPIATES URINE SCREEN PRESUMPTIVE POSITIVE (NEGATIVE); PHENCYCLIDINE URINE SCREEN NEGATIVE (NEGATIVE)
[2024-05-30] MEDS: VANCOMYCIN 1G PREMIX 200 ML IV NR (22:07)
[2024-05-30] MEDS: ENOXAPARIN 40MG/0.4ML SYR SUBCUT SCH (22:08)
[2024-05-30] MEDS: AMLODIPINE 10MG TABLET NG NR (22:52)
[2024-05-30] MEDS: LOSARTAN 25 MG TABLET NG NR (22:53)
[2024-05-31] VITALS (102 sets, daily range): BP systolic 93–175; BP diastolic 56–147; PULSE 52–115; RESP 13–29; TEMP 35.5584–36.61404; O2SAT 98–100
[2024-05-31 05:25] LABS: BASOPHILS % 0.1 % (0.0-2.0); HEMATOCRIT. 30.7 % (36.0-48.0); LYMPHOCYTES % 7.7 % (20.0-50.0); MEAN CORPUSCULAR HEMOGLOBIN 31.7 pg (28.0-32.0); MEAN CORPUSCULAR HGB CONC 32.7 g/dL (31.0-37.0); MEAN CORPUSCULAR VOLUME 96.9 fL (81.0-99.0); MEAN PLATELET VOLUME 9.7 fl (7.4-10.4); MONOCYTES % 2.8 % (2.0-8.0); NEUTROPHILS % 89.4 % (40.0-76.0); PLATELET 151 x1000/uL (130-400); RED BLOOD CELL COUNT 3.17 mill/uL (4.2-5.4); WHITE BLOOD COUNT 12.1 x1000/uL (4.5-11.0)
[2024-05-31 05:25] LABS: CALCIUM 7.9 mg/dL (8.7-10.4); CARBON DIOXIDE 23 mEq/L (21-32); CHLORIDE 112 mEq/L (98-107); POTASSIUM 3.3 mEq/L (3.5-5.1); SODIUM 144 mEq/L (136-145)
[2024-05-31 05:30] LABS: CREATININE 0.8 mg/dL (0.6-1.0); GLUCOSE 150 mg/dL (70-105)
[2024-05-31 05:31] LABS: UREA NITROGEN BLOOD 15 mg/dL (9-23)
[2024-05-31] MEDS: AMLODIPINE 10MG TABLET NG SCH (08:59)
[2024-05-31] MEDS: LOSARTAN 25 MG TABLET NG SCH (09:02)
[2024-05-31] MEDS: POTASSIUM CHLORIDE 20MEQ/PACKET PO NR (09:03)
[2024-05-31] MEDS: CEFTRIAXONE 2GM/50ML 50 ML IV SCH (09:11)
[2024-05-31] MEDS: METRONIDAZOLE 500 MG PREMIX 100 ML IV SCH (09:12)
[2024-05-31] MEDS: VANCOMYCIN 500MG PREMIX 100 ML IV SCH (10:18)
[2024-05-31] MEDS: PROPOFOL 10MG/ML 100ML 100 ML IV PRN (14:29)
[2024-05-31] MEDS: MIDAZOLAM 100MG/100ML PMX 100 ML IV PRN (17:15)
[2024-06-01] VITALS (109 sets, daily range): BP systolic 93–232; BP diastolic 49–110; PULSE 47–113; RESP 14–27; TEMP 35.5584–37.16964; O2SAT 99–100
[2024-06-01 06:22] LABS: CHLORIDE 115 mEq/L (98-107); POTASSIUM 3.5 mEq/L (3.5-5.1); SODIUM 145 mEq/L (136-145)
[2024-06-01 06:23] LABS: CALCIUM 7.9 mg/dL (8.7-10.4); CARBON DIOXIDE 19 mEq/L (21-32)
[2024-06-01 06:28] LABS: CREATININE 0.7 mg/dL (0.6-1.0); GLUCOSE 136 mg/dL (70-105); TRIGLYCERIDE 234 mg/dL (0-150)
[2024-06-01 06:30] LABS: UREA NITROGEN BLOOD 11 mg/dL (9-23)
[2024-06-01 07:56] LABS: BG BASE EXCESS -3.6 mmol/L (-2.0-3.0); BG CARBOXYHEMOGLOBIN 0.2 % (0.5-1.5); BG DEOXYHEMOGLOBIN 0.6 % (0.0-5.0); BG HCO3 ACT 19.5 mmol/L (21.0-28.0); BG OXYGEN SATURATION 99.4 % (94.0-98.0); BG OXYHEMOGLOBIN 99.2 % (94.0-98.0); BG PCO2 28.6 mmHg (32.0-45.0); BG PH 7.452 (7.350-7.450); BG PO2 189.6 mmHg (83.0-108.0); BG SAMPLE SITE RIGHT RADIAL; BG VENT MODE VENT - AC
[2024-06-01 08:55] LABS: BASOPHILS % 0.5 % (0.0-2.0); EOSINOPHILS % 0.2 % (0.0-5.0); HEMATOCRIT. 31.6 % (36.0-48.0); HEMOGLOBIN. 9.8 g/dL (12.0-16.0); LYMPHOCYTES % 7.1 % (20.0-50.0); MEAN CORPUSCULAR HGB CONC 30.9 g/dL (31.0-37.0); MEAN CORPUSCULAR VOLUME 100.3 fL (81.0-99.0); MONOCYTES % 2.3 % (2.0-8.0); NEUTROPHILS % 89.9 % (40.0-76.0); RED BLOOD CELL COUNT 3.15 mill/uL (4.2-5.4); RED CELL DISTRIBUTION WIDTH 17.7 % (11.6-14.6); WHITE BLOOD COUNT 12.7 x1000/uL (4.5-11.0)
[2024-06-01 09:13] LABS: DIFFERENTIAL COMMENT 1
[2024-06-01 10:06] LABS: PLATELET 124 x1000/uL (130-400)
[2024-06-01] MEDS ORDERED: IOHEXOL-300 100 ML BOTTLE ONE (11:04)
[2024-06-01] MEDS: PROPOFOL 10MG/ML 100ML 100 ML IV PRN (12:20)
[2024-06-01 19:23] LABS: IRON 54 ug/dL (50-170)
[2024-06-01 19:26] LABS: TOTAL IRON BINDING CAPACITY 250 ug/dl (250-425)
[2024-06-01 19:35] LABS: FERRITIN 331 ng/mL (10-291); VITAMIN B12 SERUM 392 pg/mL (211-911)
[2024-06-01] MEDS: LACTOBACILLUS GG CAPSULE GT SCH (21:17)
[2024-06-02] VITALS (96 sets, daily range): BP systolic 78–174; BP diastolic 54–163; PULSE 60–109; RESP 15–25; TEMP 36.55848–36.89184; O2SAT 97–100
[2024-06-02 06:05] LABS: BASOPHILS % 0.1 % (0.0-2.0); EOSINOPHILS % 0.5 % (0.0-5.0); HEMATOCRIT. 27.9 % (36.0-48.0); HEMOGLOBIN. 9.1 g/dL (12.0-16.0); MEAN CORPUSCULAR HEMOGLOBIN 31.6 pg (28.0-32.0); MEAN CORPUSCULAR HGB CONC 32.5 g/dL (31.0-37.0); MEAN CORPUSCULAR VOLUME 97.1 fL (81.0-99.0); MEAN PLATELET VOLUME 10.1 fl (7.4-10.4); MONOCYTES % 1.9 % (2.0-8.0); NEUTROPHILS % 78.5 % (40.0-76.0); PLATELET 117 x1000/uL (130-400); RED BLOOD CELL COUNT 2.87 mill/uL (4.2-5.4); RED CELL DISTRIBUTION WIDTH 17.4 % (11.6-14.6); WHITE BLOOD COUNT 8.6 x1000/uL (4.5-11.0)
[2024-06-02 06:58] LABS: CHLORIDE 114 mEq/L (98-107); SODIUM 144 mEq/L (136-145)
[2024-06-02 06:59] LABS: CALCIUM 7.7 mg/dL (8.7-10.4); CARBON DIOXIDE 22 mEq/L (21-32)
[2024-06-02 07:04] LABS: CREATININE 0.6 mg/dL (0.6-1.0); GLUCOSE 162 mg/dL (70-105); TRIGLYCERIDE 140 mg/dL (0-150); UREA NITROGEN BLOOD 7 mg/dL (9-23)
[2024-06-02 07:05] LABS: POTASSIUM 2.2 mEq/L (3.5-5.1)
[2024-06-02] MEDS: KCL 20MEQ/100ML PREMIX 100 ML IV SCH (07:40)
[2024-06-02] MEDS ORDERED: POTASSIUM CHLORIDE 40 MEQ in DEXT 5% WATER 230 ML IV ONE (10:00)
[2024-06-02 12:23] LABS: POTASSIUM 3.1 mEq/L (3.5-5.1)
[2024-06-02] MEDS: KCL 20MEQ/100ML X 2 FOR TOTAL KCL 40MEQ/200ML IV SCH (13:10)
[2024-06-02] MEDS: PROPOFOL 10MG/ML 100ML 100 ML IV PRN (13:34)
[2024-06-03] VITALS (9 sets, daily range): BP systolic 98–123; BP diastolic 66–73; PULSE 75–94; RESP 16; TEMP 36.55848; O2SAT 100
[2024-06-03 09:06] LABS: FOLATE HEMATOCRIT 28.2 % (34.0-46.6)
[2024-06-03 13:06] LABS: FOLATE RBC 865 ng/mL (>498)
== END 2024-06-03 02:03 | disposition short-term general hospital (02) | DRG 871 ==
LOC: ER 02:12 → MICUNO 06:09 → EDBEDREQ 06:32 → EDBEDREQSVC 06:32 → EDBEDREQTM 06:32 → ER 11:01 → MICUSO 13:30
PROVIDERS: ADMIT Internal Medicine; ATTEND Internal Medicine
PROC: 5A1945Z Respiratory Ventilation, 24-96 Consecutive Hours (ICD-10-PCS; principal; 2024-05-30)
PROC: 0BH17EZ Insertion of Endotracheal Airway into Trachea, Via Natural or Artificial Opening (ICD-10-PCS; 2024-05-30)
DX: A41.9 Sepsis, unspecified organism (principal); J96.01 Acute respiratory failure with hypoxia; J05.10 Acute epiglottitis without obstruction; E87.6 Hypokalemia; I10 Essential (primary) hypertension; J45.909 Unspecified asthma, uncomplicated; D53.9 Nutritional anemia, unspecified; J38.7 Other diseases of larynx; Z86.73 Personal history of transient ischemic attack (TIA), and cerebral infarction without residual deficits; Z88.0 Allergy status to penicillin
CPT/HCPCS: 31500; 36415; 36600; 70487; 70491; 71045; 80048; 80202; 80305; 82270; 82375; 82607; 82728; 82747; 82805; 82962; 83540; 83550; 83605; 83735; 84132; 84145; 84478; 85014; 85025; 85044; 87015; 87045; 87070; 87427; 87430; 93970; 94003; 99291; J0360; J0696; J1100; J1200; J1650; J1885; J2250; J2270; J2405; J2470; J2704; J3010; J3370; J3480; J3490; J7030; J7042; J7060; Q9967